=== PATIENT | female | born 1935 | race Caucasian/White ===

== ENCOUNTER 2018-01-04 16:34 | Inpatient (IN) | payer OTHER, MEDICARE ==
[~2018-01-04] VITALS: Ht 160 cm; Wt 119.7 kg
--- NOTE | 2018-01-04 17:05 | ED UPPER/LOWER EXTREMITY COMPL ---
History of Present Illness General Chief Complaint: Lower Extremity Problems Stated Complaint: BIBA FOR LE PROBLEMS Vital Signs & Intake/Output Vital Signs & Intake/Output Vital Signs Date Time Temp Pulse Resp B/P B/P Pulse O2 O2 Flow FiO2 Mean Ox Delivery Rate 01/04 1642 98.9 01/04 1639 141 19 129/56 98 Room Air Allergies Coded Allergies: No Known Allergies (01/04/18) Triage Note: TO ED FROM HOME BY AMBULANCE WITH C/O SWELLING, REDNESS, EDEMA TO BLE. BLE NOTED NECROTIC. PTS BROTHER IN LAW CALLED 911. PT COMPLAINT FREE. 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
--- NOTE | 2018-01-04 17:06 | ED GENERAL ADULT ---
History of Present Illness General Chief Complaint: Lower Extremity Problems Stated Complaint: BIBA FOR LE PROBLEMS Source: patient, family, EMS Exam Limitations: no limitations Vital Signs & Intake/Output Vital Signs & Intake/Output Vital Signs Date Time Temp Pulse Resp B/P B/P Pulse O2 O2 Flow FiO2 Mean Ox Delivery Rate 01/045 121 120/64 01/04 2136 121 17 120/64 01/04 1914 97.0 129 20 129/77 99 Room Air 01/04 1801 118 01/04 1642 98.9 01/04 1639 141 19 129/56 98 Room Air Allergies Coded Allergies: No Known Allergies (01/04/18) Triage Note: TO ED FROM HOME BY AMBULANCE WITH C/O SWELLING, REDNESS, EDEMA TO BLE. BLE NOTED NECROTIC. PTS BROTHER IN LAW CALLED 911. PT COMPLAINT FREE. NOTED TACHYCARDIC TO 150S DURING TRIAGE Triage Nurses Notes Reviewed? yes Onset: Gradual Duration: getting worse Timing: recent history Severity: severe Severity Numbers: 10 HPI: Patient is a 82-year-old female with a past medical history of atrial fibrillation currently on ELIQUIS AND hypertension who presents emergency room brought in by ambulance for concerns of family members communicating with patient in person in over the phone and noted concern of intermittent confusion in the past 3 days. EMS arrived on scene to patient's residency and OBSERVED patient's residency TO BE SIGNIFICANLTY POORLY KEPT AND HER LOWER LEGS WERE malodorous AND PURULENT Patient per EMS was alert and oriented and afebrile and offered no complaints Family was present state that they denied any slurred speech or extremity unilateral weakness Patient denies any fever chills shortness of breath cough back pain abdominal pain nausea vomiting or leg pain or leg paresthesia or weakness. When discussing with patient she states that she has not taken off her lower leg stockings since early November patient had been able to ambulate to use the restroom in which she denies any constipation melena or bright red blood or change in frequency of urination patient denies any headache blurred vision facial droop and slurred speech or difficulty finding words Patient does admit that she is supposed to the applying topical cream to her legs however she has not done this in some time patient also admits to not taking her medications for the past 2-3 days Patient can tolerate by mouth (Mitch COREAS,Nacho) Past History Travel History Traveled to [place] past 21 day No Medical History Any Pertinent Medical History? 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 No (Nacho Johnson) Review of Systems Review of Systems Constitutional: Reports: no symptoms. EENTM: Reports: no symptoms. Respiratory: Reports: no symptoms. Cardiovascular: Reports: no symptoms. GI: Reports: no symptoms. Genitourinary: Reports: no symptoms. Musculoskeletal: Reports: no symptoms. Skin: Reports: see HPI. Neurological/Psychological: Reports: see HPI. Hematologic/Endocrine: Reports: see HPI. Immunologic/Allergic: Reports: no symptoms. All Other Systems: Reviewed and Negative (Nacho Johnson) Physical Exam Physical Exam General Appearance: alert, awake, obese Head: atraumatic Eyes: Bilateral: normal appearance. Ears, Nose, Throat: normal pharynx, hearing grossly normal Neck: normal inspection Respiratory: normal breath sounds, chest non-tender, no respiratory distress Cardiovascular: tachycardia, irregularly irregular Peripheral Pulses: 2+ dorsalis pedis (R), 2+ dorsalis pedis (L) Gastrointestinal: normal bowel sounds, soft, non-tender Comments: Patient's bilateral lower extremities below the knee noted significant purulent malodorous discharge and erythema dermatomes intact capillary refill less than 2 seconds full active range of motion and ankle Core Measures ACS in differential dx? No CVA/TIA Diagnosis: No Sepsis Present: No Sepsis Focused Exam Completed? No (Nacho Johnson) Progress Differential Diagnoses I considered the following diagnoses in my evaluation of the patient: [Sepsis, osteomyelitis, cellulitis, atrial fibrillation] Plan of Care: Orders Procedure Date/time Status Heart Healthy Diet 01/05 B Active Patient Data 01/04 2204 Active BASIC METABOLIC PANEL 01/04 2125 Complete ED Holding Orders 01/04 2115 Active Admit to inpatient 01/04 2115 Active Vital Signs 01/04 2115 Active Code Status 01/[address] LOWER EXT WO IV CONTRAST 01/04 2114 Active LACTIC ACID 01/04 2017 Complete Add-on Test (ER Only) 01/04 1958 Active [place], Insertion/Removal/Asses 01/04 1938 Active B-TYPE NATRIURETIC PEP (BNP) 01/04 172 Complete Telemetry/Rail Car Painter/Sandblaster 01/04 1717 Active CULTURE,URINE 01/04 1717 Active BLOOD CULTURE 01/04 1717 Active URINALYSIS 01/04 1717 Complete TROPONIN LEVEL 01/04 1717 Complete PARTIAL THROMBOPLASTIN TIME 01/04 1717 Complete PROTHROMBIN TIME 01/04 1717 Complete LACTIC ACID 01/04 1717 Complete WESTERGREN SED RATE 01/04 1717 Complete C-REACTIVE PROTEIN 01/04 1717 Complete COMPREHENSIVE METABOLIC PANEL 01/04 1717 Complete CBC WITHOUT DIFFERENTIAL 01/04 1717 Complete TYPE & SCREEN (NOT X-MATCH) 01/04 1717 Complete Intake & Output 01/04 165 Active EKG 01/04 1641 Active Laboratory Tests 01/04/182126: Lactic Acid 1.1 01/04/182126: Anion Gap 10, Estimated GFR 25 L, BUN/Creatinine Ratio 41.6 H, Glucose 151 H, Calcium 8.8 01/04/18 1950: Urine Color YEL, Urine Clarity CLEAR, Urine pH 6.0, Ur Specific [place] 1.020, Urine Protein TRACE H, Urine Ketones TRACE H, Urine Nitrite NEG, Urine Bilirubin NEG, Urine Urobilinogen 0.2, Ur Leukocyte Esterase MOD H, Ur Microscopic SEDIMENT EXAMINED, Urine RBC RARE, Urine WBC 25-50 H, Ur Epithelial Cells OCCAS, Urine Bacteria FEW H, Hyaline Casts FEW H, Urine Hemoglobin NEG, Urine Glucose NEG 01/04/181727: Anion Gap 16, Estimated GFR 21 L, BUN/Creatinine Ratio 41.4 H, Glucose 130 H, Lactic Acid 1.6, Calcium 9.9, Total Bilirubin 1.1, AST 19, ALT 31, Alkaline Phosphatase 122, Troponin I 0.01, C-Reactive Prot, Quant 4.2 H, Pro-B- Natriuretic Pept 6010 H, Total Protein 7.2, Albumin 3.9, Globulin 3.3, Albumin/ Globulin Ratio 1.2, PT 16.0 H, INR 1.53 H, APTT 48 H, CBC w Diff NO MAN DIFF REQ, RBC 4.18 L, MCV 86.5, MCH 28.9, MCHC 33.4, RDW 13.1, MPV 8.5, Gran % 81.2 H, Lymphocytes % 11.2 L, Monocytes % 7.4, Eosinophils % 0.2, Basophils % 0, Absolute Granulocytes 8.3 H, Absolute Lymphocytes 1.1 L, Absolute Monocytes 0.7 H, Absolute Eosinophils 0, Absolute Basophils 0, ESR [place] 108 H Microbiology 01/04 1952 URINE ROUT: Urine Culture - RECD 01/04 1738 BLOOD: Blood Culture - RECD 01/04 1728 BLOOD: Blood Culture - RECD Family member does note that patient was on a diuretic in the past and noted suspicion of acute kidney injury in which now patient LISINOPRIL-HCTZ however it is unknown last creatinine function On examination and history patient denies any shortness of breath symptoms or chest pain or lower extremity pain no concerns of pulmonary embolism Upon admission patient does have clinical signs and chest x-ray signs of CHF IV Lasix was administered IV fluids was initially administered due to concerns of tachycardia, and sepsis WITH A 2.2 creatinine however Lasix will be ordered NOW FOR CHF Diagnostic Imaging: Viewed by Me: Radiology Read, CT Scan. Radiology Impression: SEE COMMENTS Initial ED EKG: AFIB (141 BPM) Comments: PATIENT: LISA NEIL PRESENT AGE: 82 PATIENT ACCOUNT NO: [id number] : 37 LOCATION: [facility] ORDERING PHYSICIAN: Nacho COREAS SERVICE DATE: 01/04/18 EXAM TYPE: RAD - XRY-FOOT COMPLETE, R; XRY-KNEES BILAT; [id number], LEFT EXAMINATION: XR FOOT, BILATERAL XR KNEE, BILATERAL XR TIBIA/FIBULA, BILATERAL CLINICAL INFORMATION: Severe bilateral leg purulent cellulitis. COMPARISON: None TECHNIQUE: Limited study with AP views of both knees, both lower legs, and both feet. 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 No obvious cortical erosion or destruction. No obvious cortical erosion or destruction of the feet. Diffuse soft tissue edema of both lower extremities. IMPRESSION: Very limited study with no obvious evidence of osteomyelitis of the lower legs. If clinical concern of osteomyelitis persists, a bone scan can be recommended to further evaluate. DICTATED BY: Rajeev Fuller MD DATE/TIME DICTATED:01/04/181954 ELECTRICAL AND INSTRUMENT TECHNICIAN:CALLUM PATIENT: LISA NEIL PRESENT AGE: 82 PATIENT ACCOUNT NO: [id number] : 37 LOCATION: [facility] ORDERING PHYSICIAN: Nacho COREAS SERVICE DATE: 01/04/18 EXAM TYPE: RAD - XRY-CHEST XRAY, SINGLE VIEW EXAMINATION: PORTABLE CHEST 1 VIEW CLINICAL INFORMATION: BILATERAL LEG SEVERE PURULENT CELLULITIS EVAL OSTEO, CONFUSION COMPARISON: No recent pertinent prior studies are available for comparison. TECHNIQUE: Portable frontal view of the chest was obtained. FINDINGS: Lungs are well expanded with chronic appearing coarsened reticular and interstitial markings bilaterally. There is central vascular prominence. Without prior plain films to compare to its difficult to exclude a component of mild interstitial edema with this appearance. No significant effusion or pneumothorax. Cardiac silhouette is prominent. Vascular calcification seen in aorta. IMPRESSION: Coarsened reticular and interstitial markings with central vascular prominence and enlarged cardiac silhouette. In the acute setting without priors to compare it would be difficult to exclude a component of interstitial edema. DICTATED BY: Pepito Dill MD DATE/TIME DICTATED:01/04/181951 ELECTRICAL AND INSTRUMENT TECHNICIAN:CALLUM DATE/TIME TRANSCRIBED:01/04/181951 PATIENT: LISA NEIL PRESENT AGE: 82 PATIENT ACCOUNT NO: [id number] : 37 LOCATION: [facility] ORDERING PHYSICIAN: Nacho COREAS SERVICE DATE: 01/04/18 EXAM TYPE: CAT - CT HEAD WO IV CONTRAST EXAMINATION: CT HEAD WITHOUT CONTRAST CLINICAL INFORMATION: Confusion. COMPARISON: No relevant prior imaging. TECHNIQUE: Contiguous axial imaging was performed from the skull base to vertex without intravenous administration of contrast. DLP: 613.33 mGy-cm FINDINGS: There is no acute intracranial hemorrhage or abnormal extra-axial collection. No intracranial mass effect or midline shift. Lateral and third ventricles are proportionate to the subarachnoid spaces. No hydrocephalus. Scattered nonspecific foci of hypoattenuation are visualized within the periventricular white matter that most likely represent a chronic manifestation of small vessel ischemia. The calvarium and skull base are intact. Mastoid air cells and middle ear cavities are well-aerated. Visualized nasal sinuses are well-aerated. IMPRESSION: There are scattered chronic small vessel ischemic changes within the periventricular white matter. No evidence acute territorial infarct or hemorrhage. DICTATED BY: Franky Espinoza MD DATE/TIME DICTATED:01/04/181912 ELECTRICAL AND INSTRUMENT TECHNICIAN:CALLUM DATE/TIME TRANSCRIBED:01/04/181912 (Nacho Johnson) Departure Departure Disposition: STILL A PATIENT Condition: Stable Clinical Impression Primary Impression: Cellulitis of leg Secondary Impressions: Atrial fibrillation, CHF (congestive heart failure), Elevated creatine kinase Referrals: Bryan Leonardo MD (PCP/Family) Departure Forms: Customer Survey General Discharge Information Admission Note Spoke With: Jolynn Alex MD Documentation of Exam: Documentation of any treatments & extenuating circumstances including Concerns Regarding Discharge (functional status, medication knowledge or non-compliance, living conditions, etc.) that warrant an admission rather than observation: [ Patient requires repeat labs wound care ID CONSULT, patient IV antibiotics case management consultation IV Lasix CARDIOLOGY consultation (Nacho Johnson) PA/INSTRUCTIONAL SPECIALIST Co-Sign Statement Statement: ED Attending supervision documentation- [X] I saw and evaluated the patient. I have also reviewed all the pertinent lab results and diagnostic results. I agree with the findings and the plan of care as documented in the PA's/INSTRUCTIONAL SPECIALIST's documentation. [X] I have reviewed the ED Record and agree with the PA's/INSTRUCTIONAL SPECIALIST's documentation. [] Additions or exceptions (if any) to the PAs/INSTRUCTIONAL SPECIALIST's note and plan are summarized below: [BOTH LOWER EXTREMITIES VERY EDEMATOUS AND MASSERATED, FOUL ODOR, ERYTHMEA, ? DRY GANGREEN TO TOES. IV ABX, IV DIURESIS, VASCULAR CONSULT AN INPATIENT, WOUND CONSULT] (Deana CANO,Keith Jauregui) Critical Care Note Critical Care Note Critical Care Time: 30-74 min (Nacho Johnson)
[2018-01-04 18:01] LABS: ABSOLUTE BASOPHIL COUNT 0 /CUMM (0.0-0.2); ABSOLUTE EOSINOPHIL COUNT 0 /CUMM (0.0-0.7); ABSOLUTE GRANULOCYTE CT 8.3 /CUMM (1.4-6.5); ABSOLUTE LYMPH COUNT 1.1 /CUMM (1.2-3.4); ABSOLUTE MONOCYTE COUNT 0.7 /CUMM (0.10-0.60); BASOPHIL % 0 % (0.0-2.0); EOSINOPHIL % 0.2 % (0-5); GRANULOCYTE % 81.2 % (42.2-75.2); HEMATOCRIT 36.2 % (37-47); MEAN CORPUSCULAR HGB 28.9 PG (27.0-31.0); MEAN CORPUSCULAR HGB CONC 33.4 G/DL (33.0-37.0); MEAN CORPUSCULAR VOLUME 86.5 FL (81.0-99.0); MEAN PLATELET VOLUME 8.5 FL (7.4-10.4); PLATELET COUNT 352 /CUMM (130-400); RBC DISTRIBUTION WIDTH 13.1 % (11.5-14.5); RED BLOOD CELL CT 4.18 /CUMM (4.20-5.40); WHITE BLOOD CELL COUNT 10.2 /CUMM (4.8-10.8)
[2018-01-04 18:04] LABS: PTT 48 SEC (25-37)
--- NOTE | 2018-01-04 19:20 | CT SCAN REPORT ---
EXAMINATION: CT HEAD WITHOUT CONTRAST CLINICAL INFORMATION: Confusion. COMPARISON: No relevant prior imaging. TECHNIQUE: Contiguous axial imaging was performed from the skull base to vertex without intravenous administration of contrast. DLP: 613.33 mGy-cm FINDINGS: There is no acute intracranial hemorrhage or abnormal extra-axial collection. No intracranial mass effect or midline shift. Lateral and third ventricles are proportionate to the subarachnoid spaces. No hydrocephalus. Scattered nonspecific foci of hypoattenuation are visualized within the periventricular white matter that most likely represent a chronic manifestation of small vessel ischemia. The calvarium and skull base are intact. Mastoid air cells and middle ear cavities are well-aerated. Visualized nasal sinuses are well-aerated. IMPRESSION: There are scattered chronic small vessel ischemic changes within the periventricular white matter. No evidence acute territorial infarct or hemorrhage.
--- NOTE | 2018-01-04 19:56 | RADIOLOGY REPORT ---
EXAMINATION: PORTABLE CHEST 1 VIEW CLINICAL INFORMATION: BILATERAL LEG SEVERE PURULENT CELLULITIS EVAL OSTEO, CONFUSION COMPARISON: No recent pertinent prior studies are available for comparison. TECHNIQUE: Portable frontal view of the chest was obtained. FINDINGS: Lungs are well expanded with chronic appearing coarsened reticular and interstitial markings bilaterally. There is central vascular prominence. Without prior plain films to compare to its difficult to exclude a component of mild interstitial edema with this appearance. No significant effusion or pneumothorax. Cardiac silhouette is prominent. Vascular calcification seen in aorta. IMPRESSION: Coarsened reticular and interstitial markings with central vascular prominence and enlarged cardiac silhouette. In the acute setting without priors to compare it would be difficult to exclude a component of interstitial edema.
--- NOTE | 2018-01-04 20:46 | RADIOLOGY REPORT ---
EXAMINATION: XR FOOT, BILATERAL XR KNEE, BILATERAL XR TIBIA/FIBULA, BILATERAL CLINICAL INFORMATION: Severe bilateral leg purulent cellulitis. COMPARISON: None TECHNIQUE: Limited study with AP views of both knees, both lower legs, and both feet. 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 No obvious cortical erosion or destruction. No obvious cortical erosion or destruction of the feet. Diffuse soft tissue edema of both lower extremities. IMPRESSION: Very limited study with no obvious evidence of osteomyelitis of the lower legs. If clinical concern of osteomyelitis persists, a bone scan can be recommended to further evaluate.
[2018-01-04] MEDS ORDERED: ELIQUIS5 M1 PO (22:38)
[2018-01-04] MEDS ORDERED: TOPROL XL50 M1 PO (22:38)
[2018-01-04] MEDS ORDERED: ZESTORETIC 20-1 EAC1 PO (22:39)
[2018-01-04] MEDS ORDERED: VITAMIN D1000 UNIT PO (22:40)
--- NOTE | 2018-01-04 23:17 | CT SCAN REPORT ---
EXAMINATION: CT LOWER EXTREMITY WITHOUT CONTRAST, BILATERAL CLINICAL INFORMATION: Infected purulent legs. COMPARISON: Same day radiographs. TECHNIQUE: CT without contrast is performed on the right and left lower legs. DLP: 936 mGy-cm FINDINGS: Diffuse skin thickening and subcutaneous edema/reticulation compatible with cellulitis as per clinical history. No focal fluid collection to indicate an abscess. No cortical erosions or periosteal reaction to suggest osteomyelitis are demonstrated. IMPRESSION: Evidence of cellulitis with no discrete abscess. No acute osseous abnormalities. No evidence of osteomyelitis.
--- NOTE | 2018-01-04 23:27 | History & Physical ---
Paola Sandoval MD 01/04/18 5717: General Information and HPI MD Statement: I have seen and personally examined LISA NEIL and documented this H&P. The patient is a 82 year old F who presented with a patient stated chief complaint of [lower limb cellulitis]. Source of Information: patient, family Exam Limitations: no limitations History of Present Illness: 82 years old female with past medical history of hypertension and A. fib on Eliquis, borderline diabetes presents to the ED BIBA for family concerns about the patient being confused. The patient was talking to her sister over the phone and she was found to be talking slower than usual and confused about time and place. The patient's lqsyaci-vy-foq went to check on her and called 911, when the EMT reaches the place it was found poorly kept with lower extremity lesions discharging foul-smelling purulent discharge. The patient reports that for many months her leg and feet skin was"bubbly" and was advised to moisturize her legs and apply hot compresses however she was not compliant. Her last November the patient noticed that her legs are oozing purulent (Clear-yellowish) discharge and she was trying to wear stocking to stop the oozing. She reports that she was wearing the stocking since the beginning of November and was not able to take a shower or change it. She did not see any doctors for her legs in the past ROS:Patient reports a burning sensation in her lower extremity, discomfort and difficulty walking. In addition she endorses mild exertional shortness of breath and poor oral intake. She denies any fever, chills, nausea, vomiting, diarrhea or constipation, dysurea or frequency. She also denies any chest pain, orthopnea or paroxysmal nocturnal dyspnea, focal weakness or facial droop Patient reports that she was not taking her home meds for the past few days however she think the last time she took her Eliquis was 2 days ago Patient lives home alone Patient's handle and vent machine operator is Dr. Muñoz. Note the patient the patient was started on Lasix a few years ago by her PCP and only used it for 3 months after which it was discontinued due to COCO ED course: Vital signs: Blood pressure 129/56, pulse 141, temperature 98.9, pulse ox 98 on room air Labs: CBCs shows WBC 10.2 with left shift, hemoglobin 12.1, platelets 352, PT 16 INR 1.53, PTT 48, sodium 140, potassium 5.9, and BUN 91, creatinine 2.2, glucose 130 , lactic acid 1.6, AST 19, AST 31, CRP 4.2, proBNP 6010, TSH is 3.7, free T4 0.93, urine analysis showed WBC 25-50 X-ray of tibia, fibula, feet did not show obvious evidence of osteomyelitis but recommended if concerns for osteomyelitis persistent to get bone scan Allergies/Medications Allergies: Coded Allergies: No Known Allergies (01/04/18) Home Med list Apixaban (Eliquis) 5 MG TABLET 5 MG PO BID afib (Reported) Cholecalciferol (Vitamin D3) (Vitamin D) 1,000 UNIT TABLET 1,000 UNIT PO DAILY D DEFIFICIENCY (Reported) Lisinopril/Hydrochlorothiazide (Zestoretic 20-25 MG Tablet) 20 MG-25 MG TABLET 20-25 MG PO DAILY HTN (Reported) Metoprolol Succ XL (Toprol Xl) 50 MG TAB 50 MG PO BID HTN (Reported) Past History Travel History Traveled to [place] past 21 day No Medical History Neurological: NONE EENT: NONE Cardiovascular: AFIB, hypertension Respiratory: NONE Gastrointestinal: NONE Hepatic: NONE Renal: NONE Musculoskeletal: NONE Psychiatric: NONE Endocrine: NONE Blood Disorders: NONE Cancer(s): NONE ONLINE MERCHANDISING SPECIALIST/Reproductive: NONE Surgical History Surgical History: non-contributory Past Family/Social History Family History Relations & Conditions if any Relation not specified for: *No pertinent family history Psychosocial History ETOH Use: denies use Illicit Drug Use: denies illicit drug use Review of Systems Review of Systems Constitutional: Denies: chills, diaphoresis, fever, malaise, weakness. Cardiovascular: Reports: edema. Denies: chest pain, orthopena, palpitations, peripheral edema. Respiratory: Reports: short of breath. Denies: cough, hemoptysis, orthopnea, sputum production, stridor, wheezing. GI: Denies: abdominal pain, diarrhea, nausea, changes in stool, vomiting. Genitourinary: Denies: dysuria, frequency, hematuria, hesitation, nocturia. Musculoskeletal: Denies: no symptoms. Skin: Reports: see HPI, lesions. Neurological/Psychological: Denies: no symptoms. Hematologic/Endocrine: Denies: no symptoms. Immunologic/Allergic: Denies: no symptoms. Exam & Diagnostic Data Last 24 Hrs of Vital Signs/I&O Vital Signs Date Time Temp Pulse Resp B/P B/P Pulse O2 O2 Flow FiO2 Mean Ox Delivery Rate 01/05 0105 97.5 126 22 102/76 94 Room Air 01/05 0019 Room Air 01/04 2320 97.3 103 20 109/73 98 Room Air 01/04 2233 109 01/04 2145 121 120/64 01/04 2136 121 17 120/64 01/04 1914 97.0 129 20 129/77 99 Room Air 01/04 1801 118 01/04 1642 98.9 01/04 1639 141 19 129/56 98 Room Air Intake & Output 01/05 0800 01/05 0000 01/04 1600 Intake Total Output Total 1000 Balance -1000 Output, Urine 1000 Patient 264 lb 264 lb Weight Weight Reported by Patient Measurement Method Body Front and Back (Adult) 1) 2) 3) 4) 5) 6) Last 24 Hrs of Labs/Landon: Laboratory Tests 01/04/182126: Lactic Acid 1.1 01/04/182126: Anion Gap 10, Estimated GFR 25 L, BUN/Creatinine Ratio 41.6 H, Glucose 151 H, Calcium 8.8, Phosphorus 3.9, Magnesium 2.3, Troponin I 0.01, TSH 3.740, Free T4 0.93 01/04/18 1950: Urine Color YEL, Urine Clarity CLEAR, Urine pH 6.0, Ur Specific [place] 1.020, Urine Protein TRACE H, Urine Ketones TRACE H, Urine Nitrite NEG, Urine Bilirubin NEG, Urine Urobilinogen 0.2, Ur Leukocyte Esterase MOD H, Ur Microscopic SEDIMENT EXAMINED, Urine RBC RARE, Urine WBC 25-50 H, Ur Epithelial Cells OCCAS, Urine Bacteria FEW H, Hyaline Casts FEW H, Urine Hemoglobin NEG, Urine Glucose NEG 01/04/18 172: Anion Gap 16, Estimated GFR 21 L, BUN/Creatinine Ratio 41.4 H, Glucose 130 H, Lactic Acid 1.6, Calcium 9.9, Total Bilirubin 1.1, AST 19, ALT 31, Alkaline Phosphatase 122, Troponin I 0.01, C-Reactive Prot, Quant 4.2 H, Pro-B- Natriuretic Pept 6010 H, Total Protein 7.2, Albumin 3.9, Globulin 3.3, Albumin/ Globulin Ratio 1.2, PT 16.0 H, INR 1.53 H, APTT 48 H, CBC w Diff NO MAN DIFF REQ, RBC 4.18 L, MCV 86.5, MCH 28.9, MCHC 33.4, RDW 13.1, MPV 8.5, Gran % 81.2 H, Lymphocytes % 11.2 L, Monocytes % 7.4, Eosinophils % 0.2, Basophils % 0, Absolute Granulocytes 8.3 H, Absolute Lymphocytes 1.1 L, Absolute Monocytes 0.7 H, Absolute Eosinophils 0, Absolute Basophils 0, ESR Westergren 108 H Microbiology 01/04 1952 URINE ROUT: Urine Culture - RECD 01/04 173 BLOOD: Blood Culture - RECD 01/04 172 BLOOD: Blood Culture - RECD Diagnostic Data EKG Results Afib , heart rate 128, QTC 432, no ST-T wave changes CXR Results Coarsened reticular and interstitial markings with central vascular prominence and enlarged cardiac silhouette. In the acute setting without priors to compare it would be difficult to exclude a component of interstitial edema. Other Results foot X Ray:Very limited study with no obvious evidence of osteomyelitis of the lower legs. If clinical concern of osteomyelitis persists, a bone scan can be recommended to further evaluate. Head CT: There are scattered chronic small vessel ischemic changes within the periventricular white matter. No evidence acute territorial infarct or hemorrhage. LE CT:Evidence of cellulitis with no discrete abscess. No acute osseous abnormalities. No evidence of osteomyelitis. Assessment/Plan Assessment: 82 years old female with past medical history of hypertension and A. fib on Eliquis, borderline diabetes presents to the ED BIBA for family concerns about the patient being confused. The patient was talking to her sister over the phone and she was found to be talking slower than usual and confused about time and place. The patient's twpatik-hs-mic went to check on her and called 911, when the EMT reaches the place it was found poorly kept with lower extremity lesions discharging foul-smelling purulent discharge Vital signs: Blood pressure 129/56, pulse 141, temperature 98.9, pulse ox 98 on room air Labs: CBCs shows WBC 10.2 with left shift, hemoglobin 12.1, platelets 352, PT 16 INR 1.53, PTT 48, sodium 140, potassium 5.9, and BUN 91, creatinine 2.2, glucose 130 , lactic acid 1.6, AST 19, AST 31, CRP 4.2, proBNP 6010, TSH is 3.7, free T4 0.93, urine analysis showed WBC 25-50 X-ray of tibia, fibula, feet did not show obvious evidence of osteomyelitis but recommended if concerns for osteomyelitis persistent to get bone scan Lower extremity imaging including CT was negative for features of osteomyelitis and only showed extensive soft tissue swelling #CHF Patient has history of hypertension and A. fib and was found to have elevated pro PNP, chest x-ray showed coarse reticular interstitial marking suggestive of interstitial edema Admit to telemetry floor Vitals every shift Patient was given 1 dose of Lasix 40 mg in the EDPatient has COCO would hold off Lasix for now till improvement of his kidney function Echocardiography serial EKG and Trops to R/O ACS Strict I's and O's Check hemoglobin A1c and lipid panel Cardiology consult appreciated #A. fib. Should received 2.5 mg Eliquis in the ED because of impaired kidney function Continue home dose Eliquis 5 mg twice a day starting tomorrow Continue metoprolol 50 mg twice a day Confirmed home meds in the morning #Bilateral extensive purulent lower extremity cellulitis with open wounds Continue vancomycin/ceftaz Follow-up on blood culture ID consult appreciated Wound consult appreciated Vascular consult appreciated Venous Doppler U/S tp R/O DVT Arterial DUplex to R/O PVD #COCO and hyperkalemia Most likely due to dehydration and poor oral intake Patient received a 2 L of normal saline in the ED We'll hold off Lasix for now Close monitoring of kidney function Encourage by mouth intake #Bilateral groin rash (intertrigo) Nystatin powder Patient is full code. DVT prophylaxis was Eliquis Heart healthy diet As Ranked By This Provider Problem List: 1. CHF (congestive heart failure) 2. Atrial fibrillation 3. Cellulitis of leg Core Measures/Misc (07/26) Acute Coronary Syndrome ACS Diagnosis: No Congestive Heart Failure Congestive Heart Failure Diagnosis No Cerebrovascular Accident CVA/TIA Diagnosis: No VTE (View Protocol) VTE Risk Factors Age>40 No Mechanical VTE Prophylaxis d/t Medical Contraindication No VTE Pharm Prophylaxis d/t NA PharmProphylax ordered Sepsis (View protocol) Sepsis Present: No Isma Arias 01/05/18 0218: Resident Review Statement Resident Statement: examined this patient, discussed with senior internet sales consultant, agreed with senior internet sales consultant, discussed with family, reviewed EMR data (avail), discussed with nursing , discussed with case mgmt, reviewed images, amended to note Other Findings: Patient is a 82-year-old female with medical history of atrial fibrillation currently on ELIQUIS, hypertension, chronic lower extremity edema. Patient presented to the emergency department via EMS for concern by the family member regarding intermittent confusion. The family stated that for the past 3 days with a contact her over the phone patient sound to be confused and altered and because of that they contact the EMS to assist her at her home, according to the EMS the patient home was significantly poorly kept and they noticed that she had lower legs malodorous was a purulent discharge. According to EMS patient was alert and oriented at that time, afebrile and offered no complaint. One of the family member stated that when they contact the patient over phone she was responding slower than her usual but during history obtained patient states she is now at her mental status baseline. Patient stated that for the past 1-2 months she was wearing her lower leg stocking, she did not change it since then or even take it off also she report difficulty ambulation and at least for the past 2-3 days she cannot even get herself to the bathroom, also she reports for the past 2-3 days she did not take her home medication. Patient stated that she was hiding her lower extremity from family due to embarrassing and she reports that in the past she was placed on Lasix for her lower extremity edema for around 3 months that was discontinued due to worsening renal function. Currently she denies any chest pain, shortness of breath, wheezing, heart racing , abdominal pain, nausea, vomiting, diarrhea, headaches, orthopnea. Physical examination, lab and imaging as above. Problem list: -Newly congestive heart failure -Bilateral lower extremity purulent cellulitis. -Atrial fibrillation currently in RVR. -Acute kidney injury no baseline to compare with/hyperkalemia. -Bilateral groin rash -Generalized weakness Plan: -Admit patient to telemetry floor -Vitals every shift, high risk fall. Strict TAN's, Daily weight -Patient received 40 mg IV Lasix in ED we'll hold additional diuresis till tomorrow morning. -Obtain echocardiogram -Cardiology consultation in a.m. -Additional set troponin and EKG -Check TSH, free T4, Mag, hemoglobin A1c, lipid panel in a.m. -Continue IV Fortaz, IV vancomycin -Bilateral lower extremity venous and arterial Doppler -Follow blood and urine culture -Infectious disease consultation in a.m., vascular consultation in a.m. -Wound care consultation in a.m. -Patient received home dose of metoprolol, continue monitoring if needed will give the patient 5 mg of IV Cardizem. -We'll hold off any IV fluids for now, we'll assess renal function in a.m.. -Nystatin twice daily -Physical therapy consultation in a.m. -heart healthy diet -pain pathway -DVT ppt: eliquis -full code. Isai CANO, [facility] 01/05/18 0409: Attending MD Review Statement Attending Statement Attending MD Statement: examined this patient, discuss w/resident/PA/RECRUITER MANAGER, agreed w/resident/PA/RECRUITER MANAGER, discussed with family, reviewed images, amended to note Attending Assessment/Plan: 82 yo F with h/o Afib on eliquis, HTN, chronic lower extremity edema, is brought in for evaluation of confusion. Patient's brother in law provided us details. He notes that when he reached out over the phone, she appeared confused. When EMS arrived, they noted the house was poorly kept and patient's legs were malodorous , wherein she had not changed her stockings for over 2 months. Patient reports that her lower extremities were 'weeping' clear liquid and she found it difficult to manage so she just left her stockings on. She would hide her feet when family visited her as she did not want them to know. She reports poor appetite and difficult moving around. She had not changed her diaper for past few days as she found it difficult to walk to the bathroom. She has also not been taking her medications for the past 3 days. Vitals stable except for HR in 100-120's. Exam: AAO, MMM, JVD+, Chest bibasilar crepts+, Bilateral lower extremities below the knee with macerated skin, with purulent malodorous discharge, erythema++ extends upto the ankle joint. Bilateral 2+ edema and difficult to palpate peripheral pulses. Labs: ESR 108, INR 1.53, K 5.9, bicarb 15, BUN 91, creat 2.2 (baseline unknown), glucose 130, lactic acid 1.6, trop neg, CRP 4.2, proBNP 6010. UA mod LE, WBC 25-50. CXR: coarsened reticular and interstitial markings with central vascular prominence, enlarged cardiac silhouette. Cannot rule out interstitial edema. CT head: chronic small vessel ischemic changes. CT lower extremity: cellulitis with no discrete abscess, no osseous abnormalities, no osteomyelitis. EKG: Afib @ 128. Assessment and plan: 1. Afib with rapid ventricular response 2. Noncompliance with medications 3. New onset congestive heart failure 4. Bilateral purulent lower extremity cellulitis, rule out gangrene 5. COCO vs CKD with hyperkalemia - Admit to Telemetry - Monitor for arrhythmias - Serial EKG and troponin to rule out ACS - Resume metoprolol BID, HR now settled to 100-110's, holding off on cardizem drip. - Obtain Echo and Cardio consult (Dr. Muñoz) - Patient initially received IV fluids in ER for possible sepsis, later noted to be in CHF. - IV lasix 40 mg given in ER, watch I/O's - Hold further lasix, assess renal function in AM and need for further diuresis based on that - Hold lisinopril and HCTZ - Elevate LE - Panculture - IV ceftaz and vanco for now - LE doppler to rule out DVT - LE arterial doppler to assess for PVD - Vascular consult and Wound consult - ID consult in AM to help with antibiotics - Check TSH, free T4, A1c. - Nystatin for fungal groin rash - PT eval - Pain management DVT ppx Eliquis. Full code.
--- NOTE | 2018-01-05 | Admission Certification ---
Admission Certification Certification Statement - As attending physician, I certify that at the time of - admission, based on clinical presentation, severity of - symptoms, need for further diagnostic testing and - therapeutic interventions, and risk of adverse outcomes - without in-hospital treatment, in my clinical assessment, - this patient requires an acute hospital stay for a minimum - of two nights or longer. I have also considered psychsocial - factors such as support system, advanced age, financial - issues, cognitive issues, and failed out-patient treatments, - past re-admission history, safety of patient, and lack of - compliance as applicable. Specific rationale supporting this admission is: Bilateral lower extremity purulent cellulitis, congestive heart failure with Afib with RVR.
[2018-01-05 01:05] VITALS: BP 102/76
[2018-01-05 06:28] VITALS: BP 108/66
--- NOTE | 2018-01-05 07:32 | PN- Housestaff ---
See Addendum Subjective Follow-up For: BLE cellulitis Afib with RVR COCO Hyperkalemia Acute on CHF Tele-Events Since Last Visit: Afib HR 88-122 Subjective: No complaints or acute events overnight Review of Systems Constitutional: Reports: see HPI. Objective Last 24 Hrs of Vital Signs/I&O Vital Signs Date Time Temp Pulse Resp B/P B/P Pulse O2 O2 Flow FiO2 Mean Ox Delivery Rate 01/05 1736 62 100/62 01/05 1507 97.7 62 20 100/62 96 01/05 0918 100 108/66 01/05 0917 100 108/66 01/05 0628 99.0 100 20 108/66 95 Room Air 01/05 0105 97.5 126 22 102/76 94 Room Air 01/05 0019 Room Air 01/04 2320 97.3 103 20 109/73 98 Room Air 01/04 2233 109 01/04 2145 121 120/64 01/04 2136 121 17 120/64 01/04 1914 97.0 129 20 129/77 99 Room Air 01/04 1801 118 Intake & Output 01/05 1600 01/05 0800 01/05 0000 Intake Total 400 120 Output Total 600 1000 1000 Balance -200 -880 -1000 Intake, IV 10 Intake, Oral 390 120 Output, Urine 600 1000 1000 Patient 264 lb 264 lb Weight Weight Reported by Patient Measurement Method Physical Exam General Appearance: Alert, Oriented X3, Cooperative Cardiovascular: irregular rate, 1/6 systolic murmur Lungs: Clear to Auscultation, Normal Air Movement Abdomen: Normal Bowel Sounds, Soft, No Tenderness Extremities: BLE edema, skin discoloration, ulcerative foul-smelling wounds Current Medications: Current Medications Sig/Jessica Start time Last Medication Dose Route Stop Time Status Admin Acetaminophen 650 MG Q6P PRN 01/04 2230 AC 01/05 PO 0125 Apixaban 2.5 MG BID 01/05 1000 AC PO Apixaban 2.5 MG ONCE ONE 01/04 2245 DC 01/05 PO 01/04 2246 0111 Ceftazidime 1,000 MG Q24H 01/05 1800 AC IV Ceftazidime 0 .STK-MED ONE 01/04 1817 DC .ROUTE Ceftazidime 1,000 MG ONCE ONE 01/04 1715 DC 01/04 IV 01/04 1716 1819 Cholecalciferol 1,000 IU DAILY 01/05 1000 AC PO Furosemide 0 .STK-MED ONE 01/04 2140 DC IV Furosemide 40 MG ONCE ONE 01/04 2115 DC 01/04 IV 01/04 211 214 Hydrocodone Bitart/ 1 TAB Q8P PRN 01/04 2230 AC Acetaminophen PO Lisinopril 20 MG DAILY 01/05 1000 AC PO Metoprolol Succinate 50 MG BID 01/05 1000 AC PO Metoprolol Tartrate 0 .STK-MED ONE 01/04 2140 DC PO Metoprolol Tartrate 50 MG ONCE ONE 01/04 2100 DC 01/04 PO 01/04 2101 2145 Nystatin 1 TACOS BID 01/05 0100 AC 01/05 TOP 0424 Oxycodone/ 1 TAB Q8P PRN 01/04 2230 AC Acetaminophen PO Sodium Chloride 1,000 ML BOLUS ONE 01/04 1815 DC 01/04 IV 01/04 1914 1820 Sodium Chloride 1,000 ML BOLUS ONE 01/04 1715 DC 01/04 IV 01/04 181 1727 Tramadol HCl 50 MG Q6 PRN 01/05 0015 CAN PO Vancomycin HCl 1,000 MG DAILY 01/05 1000 CAN Dextrose/Water 250 ML IV Vancomycin HCl 1,000 MG ONCE ONE 01/04 1715 DC 01/04 Dextrose/Water 250 ML IV 01/04 1814 1836 Last 24 Hrs of Lab/Landon Results Last 24 Hrs of Labs/Mics: Laboratory Tests 01/05/18 0635: Anion Gap 11, Estimated GFR 27 L, BUN/Creatinine Ratio 40.0 H, Triglycerides 43, Cholesterol 110, LDL Cholesterol, Calc 56 L, HDL Cholesterol 46, Cholesterol/HDL Ratio 2, CBC w Diff Pending, WBC Pending, RBC Pending, Hgb Pending, Hct Pending, MCV Pending, MCH Pending, MCHC Pending, RDW Pending, Plt Count Pending, MPV Pending 01/04/182126: Lactic Acid 1.1 01/04/182126: Anion Gap 10, Estimated GFR 25 L, BUN/Creatinine Ratio 41.6 H, Glucose 151 H, Calcium 8.8, Phosphorus 3.9, Magnesium 2.3, Troponin I 0.01, TSH 3.740, Free T4 0.93 01/04/18 1950: Urine Color YEL, Urine Clarity CLEAR, Urine pH 6.0, Ur Specific [place] 1.020, Urine Protein TRACE H, Urine Ketones TRACE H, Urine Nitrite NEG, Urine Bilirubin NEG, Urine Urobilinogen 0.2, Ur Leukocyte Esterase MOD H, Ur Microscopic SEDIMENT EXAMINED, Urine RBC RARE, Urine WBC 25-50 H, Ur Epithelial Cells OCCAS, Urine Bacteria FEW H, Hyaline Casts FEW H, Urine Hemoglobin NEG, Urine Glucose NEG 01/04/18 1728: Anion Gap 16, Estimated GFR 21 L, BUN/Creatinine Ratio 41.4 H, Glucose 130 H, Hemoglobin A1c Pending, Lactic Acid 1.6, Calcium 9.9, Total Bilirubin 1.1, AST 19, ALT 31, Alkaline Phosphatase 122, Troponin I 0.01, C-Reactive Prot, Quant 4.2 H, [id number] Pept 6010 H, Total Protein 7.2, Albumin 3.9, Globulin 3.3, Albumin/Globulin Ratio 1.2, PT 16.0 H, INR 1.53 H, APTT 48 H, CBC w Diff NO MAN DIFF REQ, RBC 4.18 L, MCV 86.5, MCH 28.9, MCHC 33.4, RDW 13.1, MPV 8.5, Gran % 81.2 H, Lymphocytes % 11.2 L, Monocytes % 7.4, Eosinophils % 0.2, Basophils % 0, Absolute Granulocytes 8.3 H, Absolute Lymphocytes 1.1 L, Absolute Monocytes 0.7 H, Absolute Eosinophils 0, Absolute Basophils 0, ESR Westergren 108 H Microbiology 01/04 1952 URINE ROUT: Urine Culture - RECD 01/04 1738 BLOOD: Blood Culture - RECD 01/04 1728 BLOOD: Blood Culture - RECD Orders Miscellaneous Findings: US-EXT BILAT VENOUS DOPPLER IMPRESSION: Normal triplex scan without evidence of deep venous thrombosis involving the bilateral lower extremities. US-BILAT LOW EXTR ARTERIAL DOP IMPRESSION: Limited evaluation, with nonvisualization of the left popliteal artery and bilateral anterior tibial and peroneal arteries. There are abnormal, monophasic waveforms seen of the bilateral femoral, profunda femoral and popliteal arteries. No significant peak systolic velocity reduction is seen in visualized segments. Recommend further evaluation with CTA or MRA. Assessment/Plan Assessment: Ms. Head is a 82 yo female with past medical history of hypertension and Afib on Eliquis, borderline diabetes presents to the ED BIBA for family concerns for AMS Problem list: BLE cellulitis Afib with RVR COCO Hyperkalemia Acute on CHF Plan: * US arterial Doppler equivocal * US venous Doppler negative * Monitor potassium and renal function * Continue hydrocodone, Apixaban * Change metoprolol 50 BID succinate to [address] Alicia ( cardio) * Cardiology recommendations appreciated * ID recommendations appreciated * Wound care recommendations appreciated * Vascular recommendations appreciated Problem List: 1. Cellulitis of leg Pain Ratin Pain Location: BLE Pain Goal: Remain pain free Pain Plan: Hydrocodone, Percocet Tomorrow's Labs & Rationales: BEP for renal function
[2018-01-05 08:27] LABS: ABSOLUTE BASOPHIL COUNT 0 /CUMM (0.0-0.2); MEAN PLATELET VOLUME 8.1 FL (7.4-10.4)
--- NOTE | 2018-01-05 08:43 | Cons- Vascular Surgery ---
General Information and HPI Consulting Request Date of Consult: 01/05/18 Requested By: Isai CANO,Jolynn Reason for Consult: venous stasis ulcers with cellulitis Source of Information: patient Exam Limitations: confusion History of Present Illness: 82 y/o f w/ morbid obesity, chf, afib on eliquis, dm who presents with ams and bilatearl lower extremity venous stasis ulcers and cellulitis. Pt seen and examined. not a good historian because of confusion. denies smoking. reports having the swelling for many months. labs and imaging reviewed. Allergies/Medications Allergies: Coded Allergies: No Known Allergies (01/04/18) Home Med List: Apixaban (Eliquis) 5 MG TABLET 5 MG PO BID afib (Reported) Cholecalciferol (Vitamin D3) (Vitamin D) 1,000 UNIT TABLET 1,000 UNIT PO DAILY D DEFIFICIENCY (Reported) Lisinopril/Hydrochlorothiazide (Zestoretic 20-25 MG Tablet) 20 MG-25 MG TABLET 20-25 MG PO DAILY HTN (Reported) Metoprolol Succ XL (Toprol Xl) 50 MG TAB 50 MG PO BID HTN (Reported) Past History Medical History Neurological: NONE EENT: NONE Cardiovascular: AFIB, hypertension Respiratory: NONE Gastrointestinal: NONE Hepatic: NONE Renal: NONE Musculoskeletal: NONE Psychiatric: NONE Endocrine: NONE Blood Disorders: NONE Cancer(s): NONE 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: 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 Surgical History Pertinent Surgical History: non-contributory Family History Relations & Conditions If Any: Relation not specified for: *No pertinent family history Psychosocial History Smoking Status: Never Smoked ETOH Use: denies use Illicit Drug Use: denies illicit drug use Review of Systems Review of Systems: 12 point review of symptoms peformed posative for lower extremity edemaa Exam & Diagnostic Data Vital Signs and I&O Vital Signs Date Time Temp Pulse Resp B/P B/P Pulse O2 O2 Flow FiO2 Mean Ox Delivery Rate 01/05 0628 99.0 100 20 108/66 95 Room Air 01/05 0105 97.5 126 22 102/76 94 Room Air 01/05 0019 Room Air 01/04 2320 97.3 103 20 109/73 98 Room Air 01/04 2233 109 01/04 2145 121 120/64 01/04 2136 121 17 120/64 01/04 1914 97.0 129 20 129/77 99 Room Air 01/04 1801 118 01/04 1642 98.9 01/04 1639 141 19 129/56 98 Room Air Intake & Output 01/05 1600 01/05 0800 01/05 0000 01/04 1600 01/04 0800 01/04 0000 Intake Total 120 Output Total 1000 1000 Balance -880 -1000 Intake, Oral 120 Output, Urine 1000 1000 Patient 264 lb 264 lb Weight Weight Reported by Patient Measurement Method obese soft,nt,nd bilateral lower extremities wwp. pitting edema and chronic venous stasis changes. multiple areas of ulceration with greenish disharge. cellulitis. pedal pulses not easily palpable. Assessment/Plan Assessment/Plan 82 y/o f w/ chronic venous stasis and ulceration with cellulitils -needs good local wound care with dankins wet to dry dressing and gisel compression -leg elevation -arterial and venous us -would benefit from unnaboot therapy when cellulitis resolves. Consult Acknowledgment - Thank you for your consult request.
[2018-01-05 08:54] LABS: ABSOLUTE EOSINOPHIL COUNT 0.1 /CUMM (0.0-0.7); ABSOLUTE GRANULOCYTE CT 6.7 /CUMM (1.4-6.5); ABSOLUTE LYMPH COUNT 1.2 /CUMM (1.2-3.4); ABSOLUTE MONOCYTE COUNT 0.9 /CUMM (0.10-0.60); BASOPHIL % 0.2 % (0.0-2.0); EOSINOPHIL % 0.6 % (0-5); GRANULOCYTE % 75.5 % (42.2-75.2); MEAN CORPUSCULAR HGB 29.1 PG (27.0-31.0); MEAN CORPUSCULAR HGB CONC 33.5 G/DL (33.0-37.0); MEAN CORPUSCULAR VOLUME 86.9 FL (81.0-99.0); PLATELET COUNT 290 /CUMM (130-400); RBC DISTRIBUTION WIDTH 13.2 % (11.5-14.5); RED BLOOD CELL CT 3.53 /CUMM (4.20-5.40); WHITE BLOOD CELL COUNT 8.8 /CUMM (4.8-10.8)
[2018-01-05 08:57] LABS: HEMATOCRIT 30.6 % (37-47)
--- NOTE | 2018-01-05 12:09 | ULTRASOUND REPORT ---
EXAMINATION: US TRIPLEX OF LOWER EXTREMITIES, BILATERAL CLINICAL INFORMATION: Bilateral lower extremity edema, swelling, skin changes and tenderness. COMPARISON: None. TECHNIQUE: Color-flow triplex imaging with spectral analysis and compression Doppler were performed on the lower extremities. Imaging of the distal calf veins bilaterally is limited by overlapping bandages. FINDINGS: Respiratory variation, normal compression and augmented flow are noted throughout the lower extremities. The visualized common femoral vein, proximal greater saphenous vein, femoral vein, profunda femoral vein, popliteal vein and visualized mid calf venous segments show no evidence of deep venous thrombosis. There is no Bonner's cyst. IMPRESSION: Normal triplex scan without evidence of deep venous thrombosis involving the bilateral lower extremities.
--- NOTE | 2018-01-05 12:29 | Cons- Cardiology ---
General Information and HPI Consulting Request Date of Consult: 01/05/18 Requested By: Donovan Burr MD Reason for Consult: Atrial fibrillation Source of Information: patient, old records Exam Limitations: no limitations History of Present Illness: Is an 82-year-old female with a history of persistent atrial fibrillation on liquids, hypertension, diabetes, mild aortic stenosis and mild to moderate mitral regurgitation, who now presents with confusion and purulent foul-smelling discharge from her lower extremities. Patient states that she was confused yesterday which prompted her sister to become more concerned and brought her to the emergency room for evaluation. The cardiac standpoint she denies chest pain or shortness of breath. She has not kept her follow-up appointments in the office and has not been seen since April 2017. 82 years old female with past medical history of hypertension and A. fib on Eliquis, borderline diabetes presents to the ED BIBA for family concerns about the patient being confused. The patient was talking to her sister over the phone and she was found to be talking slower than usual and confused about time and place. The patient's srfgnzo-sm-jvi went to check on her and called 911, when the EMT reaches the place it was found poorly kept with lower extremity lesions discharging foul-smelling purulent discharge Vital signs: Blood pressure 129/56, pulse 141, temperature 98.9, pulse ox 98 on room air Labs: CBCs shows WBC 10.2 with left shift, hemoglobin 12.1, platelets 352, PT 16 INR 1.53, PTT 48, sodium 140, potassium 5.9, and BUN 91, creatinine 2.2, glucose 130 , lactic acid 1.6, AST 19, AST 31, CRP 4.2, proBNP 6010, TSH is 3.7, free T4 0.93, urine analysis showed WBC 25-50 X-ray of tibia, fibula, feet did not show obvious evidence of osteomyelitis but recommended if concerns for osteomyelitis persistent to get bone scan Lower extremity imaging including CT was negative for features of osteomyelitis and only showed extensive soft tissue swelling #CHF Patient has history of hypertension and A. fib and was found to have elevated pro PNP, chest x-ray showed coarse reticular interstitial marking suggestive of interstitial edema Admit to telemetry floor Vitals every shift Patient was given 1 dose of Lasix 40 mg in the EDPatient has COCO would hold off Lasix for now till improvement of his kidney function Echocardiography serial EKG and Trops to R/O ACS Strict I's and O's Check hemoglobin A1c and lipid panel Cardiology consult appreciated #A. fib. Should received 2.5 mg Eliquis in the ED because of impaired kidney function Continue home dose Eliquis 5 mg twice a day starting tomorrow Continue metoprolol 50 mg twice a day Confirmed home meds in the morning #Bilateral extensive purulent lower extremity cellulitis with open wounds Continue vancomycin/ceftaz Follow-up on blood culture ID consult appreciated Wound consult appreciated Vascular consult appreciated Venous Doppler U/S tp R/O DVT Arterial DUplex to R/O PVD #COCO and hyperkalemia Most likely due to dehydration and poor oral intake Patient received a 2 L of normal saline in the ED We'll hold off Lasix for now Close monitoring of kidney function Encourage by mouth intake Allergies/Medications Allergies: Coded Allergies: No Known Allergies (01/04/18) Home Med List: Apixaban (Eliquis) 5 MG TABLET 5 MG PO BID afib (Reported) Cholecalciferol (Vitamin D3) (Vitamin D) 1,000 UNIT TABLET 1,000 UNIT PO DAILY D DEFIFICIENCY (Reported) Lisinopril/Hydrochlorothiazide (Zestoretic 20-25 MG Tablet) 20 MG-25 MG TABLET 20-25 MG PO DAILY HTN (Reported) Metoprolol Succ XL (Toprol Xl) 50 MG TAB 50 MG PO BID HTN (Reported) Current Medications: Current Medications Sig/Jessica Start time Last Medication Dose Route Stop Time Status Admin Acetaminophen 650 MG .STK-MED ONE 01/05 0115 DC PO 01/05 0116 Acetaminophen 650 MG Q6P PRN 01/04 2230 AC 01/05 PO 0125 Apixaban 2.5 MG BID 01/05 1000 AC 01/05 PO 0918 Apixaban 2.5 MG ONCE ONE 01/04 2245 DC 01/05 PO 01/04 2246 0111 Ceftazidime 1,000 MG Q24H 01/05 1800 AC IV Ceftazidime 0 .STK-MED ONE 01/04 1817 DC .ROUTE Ceftazidime 1,000 MG ONCE ONE 01/04 1715 DC 01/04 IV 01/04 1716 1819 Cholecalciferol 1,000 IU DAILY 01/05 1000 AC 01/05 PO 0917 Furosemide 0 .STK-MED ONE 01/04 2140 DC IV Furosemide 40 MG ONCE ONE 01/04 2115 DC 01/04 IV 01/04 2116 2145 Hydrocodone Bitart/ 1 TAB Q8P PRN 01/04 2230 AC Acetaminophen PO Lisinopril 20 MG DAILY 01/05 1000 AC 01/05 PO 0918 Metoprolol Succinate 50 MG BID 01/05 1000 AC 01/05 PO 0917 Metoprolol Tartrate 0 .STK-MED ONE 01/04 2140 DC PO Metoprolol Tartrate 50 MG ONCE ONE 01/04 2100 DC 01/04 PO 01/04 2101 2145 Nystatin 1 TACOS BID 01/05 0100 AC 01/05 TOP 0918 Oxycodone/ 1 TAB Q8P PRN 01/04 2230 AC Acetaminophen PO Sodium Chloride 1,000 ML BOLUS ONE 01/04 1815 DC 01/04 IV 01/04 1914 1820 Sodium Chloride 1,000 ML BOLUS ONE 01/04 1715 DC 01/04 IV 01/04 1814 1727 Tramadol HCl 50 MG Q6 PRN 01/05 0015 CAN PO Vancomycin HCl 1,000 MG DAILY 01/05 1000 CAN Dextrose/Water 250 ML IV Vancomycin HCl 1,000 MG ONCE ONE 01/04 1715 DC 01/04 Dextrose/Water 250 ML IV 01/04 1814 1836 Review of Systems Review of Systems: Eyes no blurred or double vision Ears no deafness or ringing Nose and throat no recurrent sinusitis Lungs per history of present illness Heart per history of present illness Abdomen no nausea vomiting Musculoskeletal edema with purulent discharge of her legs Psych no anxiety or depression Neuro without recurrent headache or seizures Endocrine no heat or cold intolerance Past History Travel History Traveled to [place] past 21 day No Medical History Neurological: NONE EENT: NONE Cardiovascular: AFIB, hypertension Respiratory: NONE Gastrointestinal: NONE Hepatic: NONE Renal: NONE Musculoskeletal: NONE Psychiatric: NONE Endocrine: NONE Blood Disorders: NONE Cancer(s): NONE 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: 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 Surgical History Surgical History: non-contributory Family History Relations & Conditions If Any: Relation not specified for: *No pertinent family history Psychosocial History Smoking Status: Never Smoked ETOH Use: denies use Illicit Drug Use: denies illicit drug use Exam & Diagnostic Data Vital Signs and I&O Vital Signs Date Time Temp Pulse Resp B/P B/P Pulse O2 O2 Flow FiO2 Mean Ox Delivery Rate 01/05 0918 100 108/66 01/05 0917 100 108/66 01/05 0628 99.0 100 20 108/66 95 Room Air 01/05 0105 97.5 126 22 102/76 94 Room Air 01/05 0019 Room Air 01/04 2320 97.3 103 20 109/73 98 Room Air 01/04 2233 109 01/04 2145 121 120/64 01/04 2136 121 17 120/64 01/04 1914 97.0 129 20 129/77 99 Room Air 01/04 1801 118 01/04 1642 98.9 01/04 1639 141 19 129/56 98 Room Air Intake & Output 01/05 1600 01/05 0800 01/05 0000 01/04 1600 01/04 0800 01/04 0000 Intake Total 120 Output Total 1000 1000 Balance -880 -1000 Intake, Oral 120 Output, Urine 1000 1000 Patient 264 lb 264 lb Weight Weight Reported by Patient Measurement Method Physical Exam: Patient is a well-developed well-nourished female appearing in no acute distress HEENT is unremarkable Neck is supple there is no JVD Lungs few bibasilar rales Heart irregular rhythm S1 and S2 are normal no gallops or rubs 2/6 soft ejection murmur left sternal border Abdomen bowel sounds positive Extremities 4+ edema with multiple ulcerations purulent discharge and cellulitis Labs/Landon Results: Laboratory Tests 01/05 01/04 01/04 0635 2127 2127 Chemistry Sodium (137 - 145 mmol/L) 141 137 Potassium (3.5 - 5.1 mmol/L) 5.1 5.3 H Chloride (98 - 107 mmol/L) 111 H 110 H Carbon Dioxide (22 - 30 mmol/L) 19 L 17 L Anion Gap (5 - 16) 11 10 BUN (7 - 17 mg/dL) 72 H 79 H Creatinine (0.5 - 1.0 mg/dL) 1.8 H 1.9 H Estimated GFR (>60 ml/min) 27 L 25 L BUN/Creatinine Ratio (7 - 25 %) 40.0 H 41.6 H Glucose (65 - 99 mg/dL) 151 H Lactic Acid (0.7 - 2.1 mmol/L) 1.1 Calcium (8.4 - 10.2 mg/dL) 8.8 Phosphorus (2.5 - 4.5 mg/dL) 3.9 Magnesium (1.6 - 2.3 mg/dL) 2.3 Troponin I (< 0.11 ng/ml) 0.01 Triglycerides (<150 mg/dL) 43 Cholesterol (<200 MG/DL) 110 LDL Cholesterol, Calc (65 - 129 mg/dL) 56 L HDL Cholesterol (40 - 60 mg/dL) 46 Cholesterol/HDL Ratio (0.00 - 4.23 %) 2 TSH (0.270 - 4.200 uIU/mL) 3.740 Free T4 (0.85 - 1.93 ng/dL) 0.93 Hematology CBC w Diff NO MAN DIFF REQ WBC (4.8 - 10.8 /CUMM) 8.8 RBC (4.20 - 5.40 /CUMM) 3.53 L Hgb (12.0 - 16.0 G/DL) 10.3 L Hct (37 - 47 %) 30.6 L MCV (81.0 - 99.0 FL) 86.9 MCH (27.0 - 31.0 PG) 29.1 MCHC (33.0 - 37.0 G/DL) 33.5 RDW (11.5 - 14.5 %) 13.2 Plt Count (130 - 400 /CUMM) 290 MPV (7.4 - 10.4 FL) 8.1 Gran % (42.2 - 75.2 %) 75.5 H Lymphocytes % (20.5 - 51.1 %) 13.4 L Monocytes % (1.7 - 9.3 %) 10.3 H Eosinophils % (0 - 5 %) 0.6 Basophils % (0.0 - 2.0 %) 0.2 Absolute Granulocytes (1.4 - 6.5 /CUMM) 6.7 H Absolute Lymphocytes (1.2 - 3.4 /CUMM) 1.2 Absolute Monocytes (0.10 - 0.60 /CUMM) 0.9 H Absolute Eosinophils (0.0 - 0.7 /CUMM) 0.1 Absolute Basophils (0.0 - 0.2 /CUMM) 0 01/04 01/04 1950 1728 Chemistry Sodium (137 - 145 mmol/L) 140 Potassium (3.5 - 5.1 mmol/L) 5.9 H Chloride (98 - 107 mmol/L) 108 H Carbon Dioxide (22 - 30 mmol/L) 15 L Anion Gap (5 - 16) 16 BUN (7 - 17 mg/dL) 91 H Creatinine (0.5 - 1.0 mg/dL) 2.2 H Estimated GFR (>60 ml/min) 21 L BUN/Creatinine Ratio (7 - 25 %) 41.4 H Glucose (65 - 99 mg/dL) 130 H Hemoglobin A1c (4.2 - 5.8 %) 6.1 H Lactic Acid (0.7 - 2.1 mmol/L) 1.6 Calcium (8.4 - 10.2 mg/dL) 9.9 Total Bilirubin (0.2 - 1.3 mg/dL) 1.1 AST (14 - 36 U/L) 19 ALT (9 - 52 U/L) 31 Alkaline Phosphatase (<127 U/L) 122 Troponin I (< 0.11 ng/ml) 0.01 C-Reactive Prot, Quant (<1.0 mg/dL) 4.2 H [id number]-[id number] Pept (<125 pg/mL) 6010 H Total Protein (6.3 - 8.2 g/dL) 7.2 Albumin (3.5 - 5.0 g/dL) 3.9 Globulin (1.9 - 4.2 gm/dL) 3.3 Albumin/Globulin Ratio (1.1 - 2.2 %) 1.2 Coagulation PT (9.4 - 12.5 SEC) 16.0 H INR (0.90 - 1.19) 1.53 H APTT (25 - 37 SEC) 48 H Hematology CBC w Diff NO MAN DIFF REQ WBC (4.8 - 10.8 /CUMM) 10.2 RBC (4.20 - 5.40 /CUMM) 4.18 L Hgb (12.0 - 16.0 G/DL) 12.1 Hct (37 - 47 %) 36.2 L MCV (81.0 - 99.0 FL) 86.5 MCH (27.0 - 31.0 PG) 28.9 MCHC (33.0 - 37.0 G/DL) 33.4 RDW (11.5 - 14.5 %) 13.1 Plt Count (130 - 400 /CUMM) 352 MPV (7.4 - 10.4 FL) 8.5 Gran % (42.2 - 75.2 %) 81.2 H Lymphocytes % (20.5 - 51.1 %) 11.2 L Monocytes % (1.7 - 9.3 %) 7.4 Eosinophils % (0 - 5 %) 0.2 Basophils % (0.0 - 2.0 %) 0 Absolute Granulocytes (1.4 - 6.5 /CUMM) 8.3 H Absolute Lymphocytes (1.2 - 3.4 /CUMM) 1.1 L Absolute Monocytes (0.10 - 0.60 /CUMM) 0.7 H Absolute Eosinophils (0.0 - 0.7 /CUMM) 0 Absolute Basophils (0.0 - 0.2 /CUMM) 0 ESR Westergren (0 - 20 MM) 108 H Urines Urine Color (YEL,AMB,STR) YEL Urine Clarity (CLEAR) CLEAR Urine pH (5.0 - 8.0) 6.0 Ur Specific [place] (1.001 - 1.035) 1.020 Urine Protein (NEG,<30 MG/DL) TRACE H Urine Ketones (NEG) TRACE H Urine Nitrite (NEG) NEG Urine Bilirubin (NEG) NEG Urine Urobilinogen (0.1 - 1.0 EU/dl) 0.2 Ur Leukocyte Esterase (NEG) MOD H Ur Microscopic SEDIMENT EXAMINED Urine RBC (0 - 5 /HPF) RARE Urine WBC (0 - 2 /HPF) 25-50 H Ur Epithelial Cells (NONE,FEW) OCCAS Urine Bacteria (NEG/NONE) FEW H Hyaline Casts (0/LPF) FEW H Urine Hemoglobin (NEG) NEG Urine Glucose (N MG/DL) NEG Diagnostic Data EKG Results Atrial fibrillation with rapid ventricular response CXR Results IMPRESSION: Coarsened reticular and interstitial markings with central vascular prominence and enlarged cardiac silhouette. In the acute setting without priors to compare it would be difficult to exclude a component of interstitial edema. Assessment/Plan Assessment/Plan 1. Persistent atrial fibrillation on Eliquis now with rapid ventricular response most likely secondary to pain 2. Mild aortic sclerosis with mild to moderate mitral regurgitation by echocardiogram 3. Acute diastolic heart failure BNP of 6010 last ejection fraction by echo performed April 2017 was 50% 4. Chronic venous stasis changes with ulceration and cellulitis 5. Acute renal insufficiency Recommendations 1. I would continue to look was for stroke prevention in atrial fibrillation 2. Continue metoprolol for rate control 3. Diuresis monitoring renal function closely 4. Antibiotics per ID and vascular 5. Repeat echocardiogram to reassess LV function and valvular heart disease Thank you for allowing [facility] to participate in the care of your patient. Consult Acknowledgment - Thank you for your consult request.
--- NOTE | 2018-01-05 13:15 | ULTRASOUND REPORT ---
EXAMINATION: COLOR-FLOW DUPLEX IMAGING OF THE BILATERAL LOWER EXTREMITY ARTERIAL SYSTEM VELOCITY MEASUREMENTS THROUGHOUT THE FEMORAL ARTERIES. CLINICAL INFORMATION: This is a 82 year-old female with bilateral toe ischemia. RIGHT FEMORAL RUNOFF VELOCITIES: The right common femoral artery peak systolic velocity is 175 cm/s. The waveform is slightly triphasic. The right profunda femoral artery peak systolic velocity is 65 cm/s. The waveform is monophasic. The right proximal superficial femoral artery peak systolic velocity is 141 cm/s. The waveform is monophasic. The right mid superficial femoral artery peak systolic velocity is 169 cm/s. The waveform is monophasic. The right distal right superficial femoral artery peak systolic velocity is 184 cm/s. The waveform is monophasic. The right popliteal artery peak systolic velocity is 89 cm/s. The waveform is monophasic. The right posterior tibial artery velocity peak systolic velocity is 111 cm/s. The waveform is monophasic. The right dorsalis pedis peak systolic velocity is 86 cm/s. The waveform is monophasic. The right anterior tibial and peroneal arteries are not visualized. LEFT FEMORAL RUNOFF VELOCITIES: The left common femoral artery peak systolic velocity is 172 cm/s. The waveform is slightly triphasic. The left profunda femoral artery peak systolic velocity is 67 cm/s. The waveform is triphasic. The left proximal superficial femoral artery peak systolic velocity is 164 cm/s. The waveform is monophasic. The left mid superficial femoral artery peak systolic velocity is 159 cm/s. The waveform is monophasic. The left distal right superficial femoral artery peak systolic velocity is 155 cm/s. The waveform is monophasic. The left posterior tibial artery velocity peak systolic velocity is 89 cm/s. The waveform is monophasic. The left dorsalis pedis peak systolic velocity is 93 cm/s. The waveform is monophasic. The left popliteal, anterior tibial and peroneal arteries are not visualized. IMPRESSION: Limited evaluation, with nonvisualization of the left popliteal artery and bilateral anterior tibial and peroneal arteries. There are abnormal, monophasic waveforms seen of the bilateral femoral, profunda femoral and popliteal arteries. No significant peak systolic velocity reduction is seen in visualized segments. Recommend further evaluation with CTA or MRA.
--- NOTE | 2018-01-05 14:56 | Cons- Infect Disease ---
General Information and HPI Consulting Request Date of Consult: 01/05/18 Requested By: Donovan Burr MD Reason for Consult: abx advice Source of Information: patient, primary team Exam Limitations: clinical condition History of Present Illness: 82 years old female with past medical history of hypertension, atrial fibrillation, and borderline diabetes presented to the ED BIBA on 01/04 after developing confusion. The patient's joasvul-jo-iel called 911; EMT noted patient unkempt and lower extremity lesions with foul-smelling purulent drainage. The patient reported that for many months her leg and feet skin was"bubbly"and that she was wearing the stocking since the beginning of November and was not able to take a shower or change it. ED course: Vital signs: Blood pressure 129/56, pulse 141, temperature 98.9, pulse ox 98 on room air Labs: CBCs shows WBC 10.2 with left shift, hemoglobin 12.1, platelets 352, PT 16 INR 1.53, PTT 48, sodium 140, potassium 5.9, and BUN 91, creatinine 2.2, glucose 130 , lactic acid 1.6, AST 19, AST 31, CRP 4.2, proBNP 6010, TSH is 3.7, free T4 0.93, urine analysis showed WBC 25-50 X-ray of tibia, fibula, feet did not show obvious evidence of osteomyelitis. Patient afebrile since admission. S/P debridement; feeling better. Allergies/Medications Allergies: Coded Allergies: No Known Allergies (01/04/18) Home Med List: Apixaban (Eliquis) 5 MG TABLET 5 MG PO BID afib (Reported) Cholecalciferol (Vitamin D3) (Vitamin D) 1,000 UNIT TABLET 1,000 UNIT PO DAILY D DEFIFICIENCY (Reported) Lisinopril/Hydrochlorothiazide (Zestoretic 20-25 MG Tablet) 20 MG-25 MG TABLET 20-25 MG PO DAILY HTN (Reported) Metoprolol Succ XL (Toprol Xl) 50 MG TAB 50 MG PO BID HTN (Reported) Current Medications: Current Medications Sig/Jessica Start time Last Medication Dose Route Stop Time Status Admin Acetaminophen 650 MG .STK-MED ONE 01/05 0115 DC PO 01/05 0116 Acetaminophen 650 MG Q6P PRN 01/04 2230 AC 01/05 PO 0125 Apixaban 2.5 MG BID 01/05 1000 AC 01/05 PO 0918 Apixaban 2.5 MG ONCE ONE 01/04 2245 DC 01/05 PO 01/04 2246 0111 Ceftazidime 1,000 MG Q24H 01/05 1800 AC IV Ceftazidime 0 .STK-MED ONE 01/04 1817 DC .ROUTE Ceftazidime 1,000 MG ONCE ONE 01/04 1715 DC 01/04 IV 01/04 1716 1819 Cholecalciferol 1,000 IU DAILY 01/05 1000 AC 01/05 PO 0917 Furosemide 0 .STK-MED ONE 01/04 2140 DC IV Furosemide 40 MG ONCE ONE 01/04 2115 DC 01/04 IV 01/04 211 2145 Hydrocodone Bitart/ 1 TAB Q8P PRN 01/04 2230 AC Acetaminophen PO Lisinopril 20 MG DAILY 01/05 1000 AC 01/05 PO 0918 Metoprolol Succinate 50 MG BID 01/05 1000 AC 01/05 PO 0917 Metoprolol Tartrate 0 .STK-MED ONE 01/04 2140 DC PO Metoprolol Tartrate 50 MG ONCE ONE 01/04 2100 DC 01/04 PO 01/04 2101 2145 Nystatin 1 TACOS BID 01/05 0100 AC 01/05 TOP 0918 Oxycodone/ 1 TAB Q8P PRN 01/04 2230 AC Acetaminophen PO Sodium Chloride 1,000 ML BOLUS ONE 01/04 1815 DC 01/04 IV 01/04 1914 1820 Sodium Chloride 1,000 ML BOLUS ONE 01/04 1715 DC 01/04 IV 01/04 1814 1727 Tramadol HCl 50 MG Q6 PRN 01/05 0015 CAN PO Vancomycin HCl 1,000 MG DAILY 01/05 1000 CAN Dextrose/Water 250 ML IV Vancomycin HCl 1,000 MG ONCE ONE 01/04 1715 DC 01/04 Dextrose/Water 250 ML IV 01/04 1814 1836 Past History Travel History Traveled to [place] past 21 day No Medical History Neurological: NONE EENT: NONE Cardiovascular: AFIB, hypertension Respiratory: NONE Gastrointestinal: NONE Hepatic: NONE Renal: NONE Musculoskeletal: NONE Psychiatric: NONE Endocrine: NONE Blood Disorders: NONE Cancer(s): NONE 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 Patient reports a burning sensation in her lower extremity, discomfort and difficulty walking. In addition she endorses mild exertional shortness of breath and poor oral intake. She denies any fever, chills, nausea, vomiting, diarrhea or constipation, dysurea or frequency. She also denies any chest pain, orthopnea or paroxysmal nocturnal dyspnea, focal weakness or facial droop Patient reports that she was not taking her home meds for the past few days however she think the last time she took her Eliquis was 2 days ago Patient lives alone. Exam & Diagnostic Data Last 24 Hrs of Vital Signs/I&O Vital Signs Date Time Temp Pulse Resp B/P B/P Pulse O2 O2 Flow FiO2 Mean Ox Delivery Rate 01/05 0918 100 108/66 01/05 0917 100 108/66 01/05 0628 99.0 100 20 108/66 95 Room Air 01/05 0105 97.5 126 22 102/76 94 Room Air 01/05 0019 Room Air 01/04 2320 97.3 103 20 109/73 98 Room Air 01/04 2233 109 01/04 2145 121 120/64 01/04 2136 121 17 120/64 01/04 1914 97.0 129 20 129/77 99 Room Air 01/04 1801 118 01/04 1642 98.9 01/04 1639 141 19 129/56 98 Room Air Intake & Output 01/05 1600 01/05 0800 01/05 0000 Intake Total 400 120 Output Total 1000 1000 Balance 400 -880 -1000 Intake, IV 10 Intake, Oral 390 120 Output, Urine 1000 1000 Patient 264 lb 264 lb Weight Weight Reported by Patient Measurement Method Physical Exam Other Physical Findings: General Appearance: Alert, Oriented X3, Cooperative HEENT AT/sclera nonicteric Neck: no JVD Cardiovascular: irregular rate, 1/6 systolic murmur Lungs: Clear to Auscultation, Normal Air Movement Abdomen: Normal Bowel Sounds, Soft, No Tenderness Extremities: BLE edema, skin discoloration, ulcerative foul-smelling wounds Neuro: alert and awake Last 24 Hours of Lab Results: Laboratory Tests 01/05 01/04 01/04 0635 7 2127 Chemistry Sodium (137 - 145 mmol/L) 141 137 Potassium (3.5 - 5.1 mmol/L) 5.1 5.3 H Chloride (98 - 107 mmol/L) 111 H 110 H Carbon Dioxide (22 - 30 mmol/L) 19 L 17 L Anion Gap (5 - 16) 11 10 BUN (7 - 17 mg/dL) 72 H 79 H Creatinine (0.5 - 1.0 mg/dL) 1.8 H 1.9 H Estimated GFR (>60 ml/min) 27 L 25 L BUN/Creatinine Ratio (7 - 25 %) 40.0 H 41.6 H Glucose (65 - 99 mg/dL) 151 H Lactic Acid (0.7 - 2.1 mmol/L) 1.1 Calcium (8.4 - 10.2 mg/dL) 8.8 Phosphorus (2.5 - 4.5 mg/dL) 3.9 Magnesium (1.6 - 2.3 mg/dL) 2.3 Troponin I (< 0.11 ng/ml) 0.01 Triglycerides (<150 mg/dL) 43 Cholesterol (<200 MG/DL) 110 LDL Cholesterol, Calc (65 - 129 mg/dL) 56 L HDL Cholesterol (40 - 60 mg/dL) 46 Cholesterol/HDL Ratio (0.00 - 4.23 %) 2 TSH (0.270 - 4.200 uIU/mL) 3.740 Free T4 (0.85 - 1.93 ng/dL) 0.93 Hematology CBC w Diff NO MAN DIFF REQ WBC (4.8 - 10.8 /CUMM) 8.8 RBC (4.20 - 5.40 /CUMM) 3.53 L Hgb (12.0 - 16.0 G/DL) 10.3 L Hct (37 - 47 %) 30.6 L MCV (81.0 - 99.0 FL) 86.9 MCH (27.0 - 31.0 PG) 29.1 MCHC (33.0 - 37.0 G/DL) 33.5 RDW (11.5 - 14.5 %) 13.2 Plt Count (130 - 400 /CUMM) 290 MPV (7.4 - 10.4 FL) 8.1 Gran % (42.2 - 75.2 %) 75.5 H Lymphocytes % (20.5 - 51.1 %) 13.4 L Monocytes % (1.7 - 9.3 %) 10.3 H Eosinophils % (0 - 5 %) 0.6 Basophils % (0.0 - 2.0 %) 0.2 Absolute Granulocytes (1.4 - 6.5 /CUMM) 6.7 H Absolute Lymphocytes (1.2 - 3.4 /CUMM) 1.2 Absolute Monocytes (0.10 - 0.60 /CUMM) 0.9 H Absolute Eosinophils (0.0 - 0.7 /CUMM) 0.1 Absolute Basophils (0.0 - 0.2 /CUMM) 0 01/04 01/04 1950 1728 Chemistry Sodium (137 - 145 mmol/L) 140 Potassium (3.5 - 5.1 mmol/L) 5.9 H Chloride (98 - 107 mmol/L) 108 H Carbon Dioxide (22 - 30 mmol/L) 15 L Anion Gap (5 - 16) 16 BUN (7 - 17 mg/dL) 91 H Creatinine (0.5 - 1.0 mg/dL) 2.2 H Estimated GFR (>60 ml/min) 21 L BUN/Creatinine Ratio (7 - 25 %) 41.4 H Glucose (65 - 99 mg/dL) 130 H Hemoglobin A1c (4.2 - 5.8 %) 6.1 H Lactic Acid (0.7 - 2.1 mmol/L) 1.6 Calcium (8.4 - 10.2 mg/dL) 9.9 Total Bilirubin (0.2 - 1.3 mg/dL) 1.1 AST (14 - 36 U/L) 19 ALT (9 - 52 U/L) 31 Alkaline Phosphatase (<127 U/L) 122 Troponin I (< 0.11 ng/ml) 0.01 C-Reactive Prot, Quant (<1.0 mg/dL) 4.2 H Bcg-A-Tkhzrfhlhgk Pept (<125 pg/mL) 6010 H Total Protein (6.3 - 8.2 g/dL) 7.2 Albumin (3.5 - 5.0 g/dL) 3.9 Globulin (1.9 - 4.2 gm/dL) 3.3 Albumin/Globulin Ratio (1.1 - 2.2 %) 1.2 Coagulation PT (9.4 - 12.5 SEC) 16.0 H INR (0.90 - 1.19) 1.53 H APTT (25 - 37 SEC) 48 H Hematology CBC w Diff NO MAN DIFF REQ WBC (4.8 - 10.8 /CUMM) 10.2 RBC (4.20 - 5.40 /CUMM) 4.18 L Hgb (12.0 - 16.0 G/DL) 12.1 Hct (37 - 47 %) 36.2 L MCV (81.0 - 99.0 FL) 86.5 MCH (27.0 - 31.0 PG) 28.9 MCHC (33.0 - 37.0 G/DL) 33.4 RDW (11.5 - 14.5 %) 13.1 Plt Count (130 - 400 /CUMM) 352 MPV (7.4 - 10.4 FL) 8.5 Gran % (42.2 - 75.2 %) 81.2 H Lymphocytes % (20.5 - 51.1 %) 11.2 L Monocytes % (1.7 - 9.3 %) 7.4 Eosinophils % (0 - 5 %) 0.2 Basophils % (0.0 - 2.0 %) 0 Absolute Granulocytes (1.4 - 6.5 /CUMM) 8.3 H Absolute Lymphocytes (1.2 - 3.4 /CUMM) 1.1 L Absolute Monocytes (0.10 - 0.60 /CUMM) 0.7 H Absolute Eosinophils (0.0 - 0.7 /CUMM) 0 Absolute Basophils (0.0 - 0.2 /CUMM) 0 ESR Westergren (0 - 20 MM) 108 H Urines Urine Color (YEL,AMB,STR) YEL Urine Clarity (CLEAR) CLEAR Urine pH (5.0 - 8.0) 6.0 Ur Specific [place] (1.001 - 1.035) 1.020 Urine Protein (NEG,<30 MG/DL) TRACE H Urine Ketones (NEG) TRACE H Urine Nitrite (NEG) NEG Urine Bilirubin (NEG) NEG Urine Urobilinogen (0.1 - 1.0 EU/dl) 0.2 Ur Leukocyte Esterase (NEG) MOD H Ur Microscopic SEDIMENT EXAMINED Urine RBC (0 - 5 /HPF) RARE Urine WBC (0 - 2 /HPF) 25-50 H Ur Epithelial Cells (NONE,FEW) OCCAS Urine Bacteria (NEG/NONE) FEW H Hyaline Casts (0/LPF) FEW H Urine Hemoglobin (NEG) NEG Urine Glucose (N MG/DL) NEG Last 24 Hours of Landon Results: SPEC #: [id number] GRAYSON: 01/04/18 STATUS: RES RECD: 01/04/[address]: Nacho Johnson SOURCE: BLOOD ENTR: 01/04/[address]: Malissa CANO,Bryan Maher SPDESC: 2ND/VENOUS ORDERED: BLOOD CULTURE Procedure Result > BLOOD CULTURE REPORT Preliminary 01/05/18 No growth after 1 day incubation. Specimen is examined continuously for 5 days before final report unless culture becomes positive. Diagnostic Data Recent Imaging Findings: CT LE IMPRESSION: Evidence of cellulitis with no discrete abscess. No acute osseous abnormalities. No evidence of osteomyelitis. DICTATED BY: Rajeev Fuller MD DATE/TIME DICTATED:01/04/182300 TECHNICAL SERVICES COORDINATOR:CALLUM DATE/TIME TRANSCRIBED:01/04/182300 US LE's IMPRESSION: Limited evaluation, with nonvisualization of the left popliteal artery and bilateral anterior tibial and peroneal arteries. There are abnormal, monophasic waveforms seen of the bilateral femoral, profunda femoral and popliteal arteries. No significant peak systolic velocity reduction is seen in visualized segments. Recommend further evaluation with CTA or MRA. DICTATED BY: Bryan Zhang MD DATE/TIME DICTATED:01/05/181253 TECHNICAL SERVICES COORDINATOR:CALLUM DATE/TIME TRANSCRIBED:01/05/181253 Assessment/Plan Assessment/Plan Impression: 82 years old female with past medical history of hypertension, atrial fibrillation, and borderline diabetes presented admitted 01/04. Bilateral lower extremity venous stasis ulcers and cellulitis Eval PAD Question COCO/underlying CKD Suggestion: 1. Local wound culture; obtain nasal MRSA surv cx. 2. Empiric iv abx Unasyn 1.5 gm q 8 h. 3. F/u vasc sx recom. 4. Trend CBC, BMP. Consult Acknowledgment - Thank you for your consult request.
[2018-01-05 15:07] VITALS: BP 100/62
[2018-01-05 22:40] VITALS: BP 102/60
[2018-01-06 07:14] VITALS: BP 108/52
--- NOTE | 2018-01-06 07:31 | PN- Housestaff ---
See Addendum Subjective Follow-up For: BLE cellulitis Afib with RVR COCO Hyperkalemia Acute on CHF Tele-Events Since Last Visit: Afib HR 84-119 Subjective: Patient reports feeling warm overnight but was afebrile. No acute events overnight Review of Systems Constitutional: Reports: see HPI. Objective Last 24 Hrs of Vital Signs/I&O Vital Signs Date Time Temp Pulse Resp B/P B/P Pulse O2 O2 Flow FiO2 Mean Ox Delivery Rate 01/06 1052 98.0 78 16 142/72 01/06 1052 98.0 78 16 142/82 01/06 0714 98.7 77 16 108/52 96 Room Air 01/06 0000 Room Air 01/05 2240 99.4 79 16 102/60 95 Room Air 01/05 1736 62 100/62 01/05 1507 97.7 62 20 100/62 96 Intake & Output 01/06 1600 01/06 0800 01/06 0000 Intake Total 600 Output Total 350 650 Balance -350 -50 Intake, Oral 600 Output, Urine 350 650 Patient 249 lb Weight Weight Bed scale Measurement Method Physical Exam General Appearance: Alert, Oriented X3, Cooperative, No Acute Distress Cardiovascular: irregular rate, 1/6 systolic murmur Lungs: Clear to Auscultation, Normal Air Movement Abdomen: Normal Bowel Sounds, Soft, No Tenderness Extremities: BLE edema, skin discoloration, foul-smelling ulcerated lesions with yellowish drainage Current Medications: Current Medications Sig/Jessica Start time Last Medication Dose Route Stop Time Status Admin Acetaminophen 650 MG .STK-MED ONE 01/05 2053 DC PO 01/05 2054 Acetaminophen 650 MG Q6P PRN 01/04 2230 AC 01/05 PO 205 Ampicillin Sodium/ 1,500 MG Q8H 01/06 0728 AC 01/06 Sulbactam Sodium IV 1053 Sodium Chloride 100 ML Apixaban 2.5 MG BID 01/05 1000 AC 01/06 PO 1051 Ceftazidime 1,000 MG Q24H 01/05 1800 DC 01/05 IV 1738 Cholecalciferol 1,000 IU DAILY 01/05 1000 AC 01/06 PO 1052 Hydrocodone Bitart/ 1 TAB Q8P PRN 01/04 2230 AC Acetaminophen PO Lisinopril 20 MG DAILY 01/05 1000 AC 01/06 PO 1052 Metoprolol Succinate 100 MG DAILY 01/06 1000 AC 01/06 PO 1052 Metoprolol Succinate 50 MG 1500 01/05 1500 DC PO 01/05 1501 Metoprolol Succinate 50 MG BID 01/05 1000 DC 01/05 PO 0917 Nystatin 1 TACOS BID 01/05 0100 AC 01/06 TOP 1117 Oxycodone/ 1 TAB Q8P PRN 01/04 2230 AC Acetaminophen PO Patient Medication 1 ED ONE ONE 01/05 1515 DC Teaching ED 01/05 1516 Sodium Hypochlorite 1 TACOS BID 01/06 1013 AC TOP Zinc Oxide 1 TACOS DAILY NEEDED PRN 01/06 1030 AC TOP Last 24 Hrs of Lab/Landon Results Last 24 Hrs of Labs/Mics: Laboratory Tests 01/06/18 0650: Anion Gap 10, Estimated GFR 36 L, BUN/Creatinine Ratio 40.7 H, CBC w Diff NO MAN DIFF REQ, RBC 3.61 L, MCV 87.0, MCH 29.2, MCHC 33.5, RDW 13.2, MPV 8.2, Gran % 69.3, Lymphocytes % 19.6 L, Monocytes % 9.9 H, Eosinophils % 1.1, Basophils % 0.1, Absolute Granulocytes 5.7, Absolute Lymphocytes 1.6, Absolute Monocytes 0.8 H, Absolute Eosinophils 0.1, Absolute Basophils 0 Microbiology 01/05 2000 UPPER RESP: Surveillance Culture - RECD 01/05 151 EXTREMITIE: Culture & Sensitivity - COLB 01/05 1512 EXTREMITIE: Gram Stain - COLB Lines/Diet/Fluids Catheters/Tubes: shah Assessment/Plan Assessment: Ms. Head is a 82 yo female with past medical history of hypertension and Afib on Eliquis, borderline diabetes presents to the ED BIBA for family concerns for AMS Problem list: BLE cellulitis Afib with RVR COCO Hyperkalemia Acute on CHF Plan: * US arterial Doppler equivocal * US venous Doppler negative * Monitor potassium and renal function * Continue hydrocodone, Apixaban * Continue metoprolol 100 daily for rate control. Discussed with Dr. Alicia ( cardio) * PT evaluation for gait stability * Obtain extremities wound cultures * Positive blood cultures most likely a contaminant, rpt BC x 2 * Vancomycin 1.5g x 1 dose * Vancomycin level in a.m. * Apply zinc oxide to sacral and coccygeal wounds * Cardiology recommendations appreciated * ID recommendations appreciated * Wound care recommendations appreciated * Vascular recommendations appreciated Problem List: 1. Atrial fibrillation with RVR 2. Acute on chronic diastolic CHF (congestive heart failure) 3. COCO (acute kidney injury) Pain Ratin Pain Location: BLE Pain Goal: Remain pain free Pain Plan: Hydrodocone, Perocet Tomorrow's Labs & Rationales: BEP for renal function
[2018-01-06 09:08] LABS: ABSOLUTE BASOPHIL COUNT 0 /CUMM (0.0-0.2); ABSOLUTE EOSINOPHIL COUNT 0.1 /CUMM (0.0-0.7); ABSOLUTE GRANULOCYTE CT 5.7 /CUMM (1.4-6.5); ABSOLUTE LYMPH COUNT 1.6 /CUMM (1.2-3.4); ABSOLUTE MONOCYTE COUNT 0.8 /CUMM (0.10-0.60); BASOPHIL % 0.1 % (0.0-2.0); EOSINOPHIL % 1.1 % (0-5); GRANULOCYTE % 69.3 % (42.2-75.2); HEMATOCRIT 31.4 % (37-47); MEAN CORPUSCULAR HGB 29.2 PG (27.0-31.0); MEAN CORPUSCULAR HGB CONC 33.5 G/DL (33.0-37.0); MEAN PLATELET VOLUME 8.2 FL (7.4-10.4); PLATELET COUNT 276 /CUMM (130-400); RBC DISTRIBUTION WIDTH 13.2 % (11.5-14.5); RED BLOOD CELL CT 3.61 /CUMM (4.20-5.40); WHITE BLOOD CELL COUNT 8.2 /CUMM (4.8-10.8)
--- NOTE | 2018-01-06 11:04 | PN- Cardiology ---
Subjective Subjective: The patient is awake, alert The events of the last 24 hours as well as telemetry were reviewed. Review of Systems: The review of systems is negative for chest pains, palpitations nor lightheadedness. The remainder of the 14 point review of systems is noncontributory with the exception of above. Objective Vital Signs and I&Os Vital Signs Date Time Temp Pulse Resp B/P B/P Pulse O2 O2 Flow FiO2 Mean Ox Delivery Rate 01/06 1052 98.0 78 16 142/72 01/06 1052 98.0 78 16 142/82 01/06 0714 98.7 77 16 108/52 96 Room Air 01/06 0000 Room Air 01/05 2240 99.4 79 16 102/60 95 Room Air 01/05 1736 62 100/62 01/05 1507 97.7 62 20 100/62 96 Intake & Output 01/06 1600 01/06 0800 01/06 0000 01/05 1600 01/05 0800 01/05 0000 Intake Total 600 400 120 Output Total 350 935 272 5847 1000 Balance -350 -50 -200 -880 -1000 Intake, IV 10 Intake, Oral 600 390 120 Output, Urine 350 203 081 5390 1000 Patient 249 lb 264 lb 264 lb Weight Weight Bed scale Reported by Patient Measurement Method Physical Exam: General: Nontoxic, no apparent distress. HEENT: Sclera and conjunctiva within normal limits, without xanthelasmas. Neck: Carotids 2+ without bruits. Respiratory: Clear to auscultation, air movement is good, without accessory respiratory muscle use. Heart: Regular rate and rhythm, 2/6 systolic ejection murmur at the right sternal border with crescendo decrescendo quality, without JVD. Abdomen: Soft, nontender, no masses, normoactive bowel sounds. Extremities: Without clubbing, cyanosis, + edema, lower extremity cellulitis. Neuro: Nonfocal exam, strength, 5 out of 5 Skin: Within normal limits without lesions. Psych: Mood and affect: Normal Current Medications: Current Medications Sig/Jessica Start time Last Medication Dose Route Stop Time Status Admin Acetaminophen 650 MG .STK-MED ONE 01/05 2053 DC PO 01/05 2054 Acetaminophen 650 MG Q6P PRN 01/04 2230 AC 01/05 PO 2053 Ampicillin Sodium/ 1,500 MG Q8H 01/06 728 AC 01/06 Sulbactam Sodium IV 1053 Sodium Chloride 100 ML Apixaban 2.5 MG BID 01/05 1000 AC 01/06 PO 1051 Ceftazidime 1,000 MG Q24H 01/05 1800 DC 01/05 IV 1738 Cholecalciferol 1,000 IU DAILY 01/05 1000 AC 01/06 PO 1052 Hydrocodone Bitart/ 1 TAB Q8P PRN 01/04 2230 AC Acetaminophen PO Lisinopril 20 MG DAILY 01/05 1000 AC 01/06 PO 1052 Metoprolol Succinate 100 MG DAILY 01/06 1000 AC 01/06 PO 1052 Metoprolol Succinate 50 MG 1500 01/05 1500 DC PO 01/05 1501 Metoprolol Succinate 50 MG BID 01/05 1000 DC 01/05 PO 0917 Nystatin 1 TACOS BID 01/05 0100 AC 01/05 TOP 0918 Oxycodone/ 1 TAB Q8P PRN 01/04 2230 AC Acetaminophen PO Patient Medication 1 ED ONE ONE 01/05 1515 DC Teaching ED 01/05 1516 Sodium Hypochlorite 1 TACOS BID 01/06 1013 AC TOP Zinc Oxide 1 TACOS DAILY NEEDED PRN 01/06 1030 AC TOP Results Last 48 Hrs of Labs/Mics: Laboratory Tests 01/06/18 0650: Anion Gap 10, Estimated GFR 36 L, BUN/Creatinine Ratio 40.7 H, CBC w Diff NO MAN DIFF REQ, RBC 3.61 L, MCV 87.0, MCH 29.2, MCHC 33.5, RDW 13.2, MPV 8.2, Gran % 69.3, Lymphocytes % 19.6 L, Monocytes % 9.9 H, Eosinophils % 1.1, Basophils % 0.1, Absolute Granulocytes 5.7, Absolute Lymphocytes 1.6, Absolute Monocytes 0.8 H, Absolute Eosinophils 0.1, Absolute Basophils 0 01/05/18 0635: Anion Gap 11, Estimated GFR 27 L, BUN/Creatinine Ratio 40.0 H, Triglycerides 43, Cholesterol 110, LDL Cholesterol, Calc 56 L, HDL Cholesterol 46, Cholesterol/HDL Ratio 2, CBC w Diff NO MAN DIFF REQ, RBC 3.53 L, MCV 86.9, MCH 29.1, MCHC 33.5, RDW 13.2, MPV 8.1, Gran % 75.5 H, Lymphocytes % 13.4 L, Monocytes % 10.3 H, Eosinophils % 0.6, Basophils % 0.2, Absolute Granulocytes 6.7 H, Absolute Lymphocytes 1.2, Absolute Monocytes 0.9 H, Absolute Eosinophils 0.1, Absolute Basophils 0 01/04/182126: Lactic Acid 1.1 01/04/182126: Anion Gap 10, Estimated GFR 25 L, BUN/Creatinine Ratio 41.6 H, Glucose 151 H, Calcium 8.8, Phosphorus 3.9, Magnesium 2.3, Troponin I 0.01, TSH 3.740, Free T4 0.93 01/04/181949: Urine Color YEL, Urine Clarity CLEAR, Urine pH 6.0, Ur Specific [place] 1.020, Urine Protein TRACE H, Urine Ketones TRACE H, Urine Nitrite NEG, Urine Bilirubin NEG, Urine Urobilinogen 0.2, Ur Leukocyte Esterase MOD H, Ur Microscopic SEDIMENT EXAMINED, Urine RBC RARE, Urine WBC 25-50 H, Ur Epithelial Cells OCCAS, Urine Bacteria FEW H, Hyaline Casts FEW H, Urine Hemoglobin NEG, Urine Glucose NEG 01/04/181727: Anion Gap 16, Estimated GFR 21 L, BUN/Creatinine Ratio 41.4 H, Glucose 130 H, Hemoglobin A1c 6.1 H, Lactic Acid 1.6, Calcium 9.9, Total Bilirubin 1.1, AST 19 , ALT 31, Alkaline Phosphatase 122, Troponin I 0.01, C-Reactive Prot, Quant 4.2 H, Jgd-U-Edccofoojty Pept 6010 H, Total Protein 7.2, Albumin 3.9, Globulin 3.3, Albumin/Globulin Ratio 1.2, PT 16.0 H, INR 1.53 H, APTT 48 H, CBC w Diff NO MAN DIFF REQ, RBC 4.18 L, MCV 86.5, MCH 28.9, MCHC 33.4, RDW 13.1, MPV 8.5, Gran % 81.2 H, Lymphocytes % 11.2 L, Monocytes % 7.4, Eosinophils % 0.2, Basophils % 0, Absolute Granulocytes 8.3 H, Absolute Lymphocytes 1.1 L, Absolute Monocytes 0.7 H, Absolute Eosinophils 0, Absolute Basophils 0, ESR Westergren 108 H Microbiology 01/04 1952 URINE ROUT: Urine Culture - COMP Assessment/Plan Assessment/Plan 1. Persistent atrial fibrillation on Eliquis now with rapid ventricular response most likely secondary to pain 2. Mild aortic sclerosis with mild to moderate mitral regurgitation by echocardiogram 3. Acute diastolic heart failure BNP of 6010 last ejection fraction by echo performed April 2017 was 50% 4. Chronic venous stasis changes with ulceration and cellulitis 5. Acute renal insufficiency Atrial fibrillation: The patient heart rate is currently controlled and she is anticoagulated with Eliquisat an adjusted dose for age and renal function. We will continue the same and follow-up as an outpatient. Cellulitis: Continue treatment as per ID and medical team. Acute on chronic congestive heart failure with preserved LV function: The patient has diuresed approximately 2 L since admission and subjectively is improved. We will continue diuresis. She would likely benefit from outpatient follow-up and he CHF clinic Continue telemetry? No
--- NOTE | 2018-01-06 12:17 | PN- Infect Dx ---
Subjective Subjective: No fever; feeling better. Hancock patent. Review of Systems Comments: 12 points reviewed as noted, otherwise negative. Objective Last 24 Hrs of Vital Signs/I&O Vital Signs Date Time Temp Pulse Resp B/P B/P Pulse O2 O2 Flow FiO2 Mean Ox Delivery Rate 01/06 1052 98.0 78 16 142/72 01/06 1052 98.0 78 16 142/82 01/06 0714 98.7 77 16 108/52 96 Room Air 01/06 0000 Room Air 01/05 2240 99.4 79 16 102/60 95 Room Air 01/05 1736 62 100/62 01/05 1507 97.7 62 20 100/62 96 Intake & Output 01/06 1600 01/06 0800 01/06 0000 Intake Total 600 Output Total 350 650 Balance -350 -50 Intake, Oral 600 Output, Urine 350 650 Patient 249 lb Weight Weight Bed scale Measurement Method Physical Exam Other Physical Findings: General Appearance: Alert, Oriented X3, Cooperative HEENT AT/sclera nonicteric Neck: no JVD Cardiovascular: irregular rate, 1/6 systolic murmur Lungs: Clear to Auscultation, Normal Air Movement Abdomen: Normal Bowel Sounds, Soft, No Tenderness Extremities: BLE edema, skin discoloration, ulcerative foul-smelling wounds Neuro: alert and awake Results Last 24 Hours of Lab Results: Laboratory Tests 01/06 0650 Chemistry Sodium (137 - 145 mmol/L) 140 Potassium (3.5 - 5.1 mmol/L) 5.0 Chloride (98 - 107 mmol/L) 110 H Carbon Dioxide (22 - 30 mmol/L) 19 L Anion Gap (5 - 16) 10 BUN (7 - 17 mg/dL) 57 H Creatinine (0.5 - 1.0 mg/dL) 1.4 H Estimated GFR (>60 ml/min) 36 L BUN/Creatinine Ratio (7 - 25 %) 40.7 H Hematology CBC w Diff NO MAN DIFF REQ WBC (4.8 - 10.8 /CUMM) 8.2 RBC (4.20 - 5.40 /CUMM) 3.61 L Hgb (12.0 - 16.0 G/DL) 10.5 L Hct (37 - 47 %) 31.4 L MCV (81.0 - 99.0 FL) 87.0 MCH (27.0 - 31.0 PG) 29.2 MCHC (33.0 - 37.0 G/DL) 33.5 RDW (11.5 - 14.5 %) 13.2 Plt Count (130 - 400 /CUMM) 276 MPV (7.4 - 10.4 FL) 8.2 Gran % (42.2 - 75.2 %) 69.3 Lymphocytes % (20.5 - 51.1 %) 19.6 L Monocytes % (1.7 - 9.3 %) 9.9 H Eosinophils % (0 - 5 %) 1.1 Basophils % (0.0 - 2.0 %) 0.1 Absolute Granulocytes (1.4 - 6.5 /CUMM) 5.7 Absolute Lymphocytes (1.2 - 3.4 /CUMM) 1.6 Absolute Monocytes (0.10 - 0.60 /CUMM) 0.8 H Absolute Eosinophils (0.0 - 0.7 /CUMM) 0.1 Absolute Basophils (0.0 - 0.2 /CUMM) 0 Last 24 Hours of Landon Results: SPEC #: [id number] GRAYSON: 01/05/18 STATUS: COLB RECD: - SUBM DR: Harpal CANO, [facility] [place] SOURCE: EXTREMITIE ENTR: 01/05/[address]: Malissa CANO,Bryan Maher SPDESC: SCOTT Burr MD,Donovan Alex MD, [facility] ORDERED: XTRM CULT COMMENT: TYPE OF SPECIMEN: DEEP Procedure Result XTRM CULT PENDING RECEIPT SPEC #: [id number] GRAYSON: 01/04/18 STATUS: RES RECD: 01/04/[address]: Nacho Johnson SOURCE: BLOOD ENTR: 01/04/[address]: Malissa CANO,Bryan Maher SPDESC: 1ST/VENOUS ORDERED: BLOOD CULTURE Procedure Result > BLOOD CULTURE REPORT Preliminary 01/06/18 GRAM STAIN SUGGESTIVE OF: GRAM POSITIVE COCCI IN CLUSTERS Called to/Readback by GROVER by [email or web address] 01/06/181115 Called to/Readback by DR MORRIS by [email or web address] 01/06/181116 Recent Imaging Studies: Arterial US LE's: IMPRESSION: Limited evaluation, with nonvisualization of the left popliteal artery and bilateral anterior tibial and peroneal arteries. There are abnormal, monophasic waveforms seen of the bilateral femoral, profunda femoral and popliteal arteries. No significant peak systolic velocity reduction is seen in visualized segments. Recommend further evaluation with CTA or MRA. DICTATED BY: Bryan Zhang MD DATE/TIME DICTATED:01/05/181253 AUTOMOTIVE HARDWARE ENGINEER:CALLUM DATE/TIME TRANSCRIBED:01/05/181253 CONFIDENTIAL, DO NOT COPY WITHOUT APPROPRIATE AUTHORIZATION Assessment/Plan ID Impression: 82 years old female with past medical history of hypertension, atrial fibrillation, and borderline diabetes presented admitted 01/04. Bilateral lower extremity venous stasis ulcers and cellulitis BActeremia (GPC in clusters ? SCN vs S. aureus) Eval PAD COCO/kidney function improving Suggestion: 1. Repeat Bc x2. 2. Empiric iv abx Unasyn 1.5 gm q 8 h; pending BC results add vancomycin 1.5 gm x1 today 3. F/u vasc sx recom. 4. Trend CBC, BMP, random vancomycin level in am. 5. D/c Hancock cath when feasible.
--- NOTE | 2018-01-06 12:39 | ECHOCARDIOGRAM REPORT ---
LISA NEIL Age: 82 : 1935 Gender: F Exam Date: 01/05/2018 16:15 Exam Location: [address] Ht (in): 63 Wt (lb): 263 BSA: 2.37 BP: 108 / 66 Ordering Physician: Isma Arias MD Referring Physician: Milo Muñoz MD Technologist: Annelise Armando [facility] Room Number: 174-02 Indications: HEART FAILURE Rhythm: Technical Quality: FINDINGS Left Ventricle Normal LV chamber size and wall thickness. The estimated LVEF is 55%. There are no focal wall motion abnormalities. There is mild septal dyssynchrony. Right Ventricle Mildly dilated right ventricular size, with mild right ventricular hypokinesis. Right Atrium Dilated right atrium Left Atrium Moderately dilated left atrium Mitral Valve Mildly thickened and calcified mitral valve leaflets with adequate leaflet opening. There is mild to moderate mitral regurgitation. Aortic Valve Mildly calcified aortic valve leaflets with adequate leaflet opening. There is aortic valve stenosis with a mean gradient of 23 Tricuspid Valve normal appearing tricuspid valvular leaflets, structure and function. There is mild to moderate tricuspid regurgitation. The estimated PA systolic pressure is 31 mmHg Pulmonic Valve Normal appearing pulmonic valve Pericardium Normal-appearing pericardium Great Vessels Grossly normal great vessels. CONCLUSIONS Normal LV chamber size and wall thickness. The estimated LVEF is 55%. There are no focal wall motion abnormalities. There is mild septal dyssynchrony. Mildly dilated right ventricular size, with mild right ventricular hypokinesis. Moderately dilated left atrium. Mildly thickened and calcified mitral valve leaflets with adequate leaflet opening. There is mild to moderate mitral regurgitation. Mildly calcified aortic valve leaflets with adequate leaflet opening. There is aortic valve stenosis with a mean gradient of 23. Normal appearing tricuspid valvular leaflets, structure and function. There is mild to moderate tricuspid regurgitation. The estimated PA systolic pressure is 31 mmHg. Bay Miranda M.D. (Electronically Signed) Final Date: 06 January 2018 12:38 MEASUREMENTS (Male / Female) Normal Values 2D ECHO LV Diastolic Diameter PLAX 4.2 cm 4.2 - 5.9 / 3.9 - 5.3 cm LV Systolic Diameter PLAX 2.9 cm 2.1 - 4.0 cm LV Fractional Shortening PLAX 31.0 % 25 - 46 % LV Ejection Fraction 2D Teich 59.0 % IVS Diastolic Thickness 0.9 cm LVPW Diastolic Thickness 1.2 cm LV Relative Wall Thickness 0.5 RV Internal Dim ED PLAX 2.6 cm 1.9 - 3.8 cm LVOT Diameter 1.8 cm Aortic Root Diameter 2.4 cm LA Systolic Diameter LX 4.9 cm 3.0 - 4.0 / 2.7 - 3.8 cm LA Volume 124.0 cm 18 - 58 / 22 - 52 cm Ascending Aorta Diameter 2.7 cm DOPPLER AV Peak Velocity 314.0 cm/s AV Peak Gradient 39.4 mmHg AV Mean Velocity 226.0 cm/s AV Mean Gradient 23.0 mmHg AV Velocity Time Integral 58.0 cm LVOT Peak Velocity 199.0 cm/s LVOT Peak Gradient 15.8 mmHg LVOT Mean Velocity 142.0 cm/s LVOT Mean Gradient 9.0 mmHg LVOT Velocity Time Integral 41.0 cm LVOT Stroke Volume 104.3 cm AV Area Cont Eq vti 1.8 cm AV Area Cont Eq pk 1.6 cm MV Peak Velocity 177.0 cm/s MV Peak Gradient 12.5 mmHg MV Mean Velocity 85.6 cm/s MV Mean Gradient 4.0 mmHg Mitral E Point Velocity 151.0 cm/s MV PHT Velocity 179.0 cm/s MV Deceleration Clinch 722.0 cm/s MV Pressure Half Time 74.4 ms MV Area PHT 3.0 cm MV Deceleration Time 182.0 ms TR Peak Velocity 256.0 cm/s TR Peak Gradient 26.2 mmHg Right Atrial Pressure 5.0 mmHg Pulmonary Artery Systolic Pressu 31.2 mmHg Right Ventricular Systolic Press 31.2 mmHg PV Peak Velocity 175.0 cm/s PV Peak Gradient 12.3 mmHg PV Mean Velocity 104.0 cm/s PV Mean Gradient 5.0 mmHg PV Velocity Time Integral 25.6 cm LV E' Lateral Velocity 18.1 cm/s Mitral E to LV E' Lateral Ratio 8.3 LV E' Septal Velocity 10.1 cm/s Mitral E to LV E' Septal Ratio 15.0
[2018-01-06 14:00] VITALS: BP 100/60
[2018-01-06 22:33] VITALS: BP 102/60
[2018-01-07 06:53] VITALS: BP 112/70
--- NOTE | 2018-01-07 07:17 | PN- Housestaff ---
See Addendum Subjective Follow-up For: BLE cellulitis Afib with RVR COCO Hyperkalemia Acute on CHF Tele-Events Since Last Visit: Afib HR 87-126 Subjective: No complaints or acute events overnight Review of Systems Constitutional: Reports: see HPI. Objective Last 24 Hrs of Vital Signs/I&O Vital Signs Date Time Temp Pulse Resp B/P B/P Pulse O2 O2 Flow FiO2 Mean Ox Delivery Rate 01/07 0653 98.4 90 18 112/70 98 Room Air 01/06 2343 Room Air 01/06 2233 98.4 114 16 102/60 100 Room Air 01/06 1400 98.3 94 20 100/60 98 Room Air 01/06 1052 98.0 78 16 142/72 01/06 1052 98.0 78 16 142/82 Intake & Output 01/07 1600 01/07 0800 01/07 0000 Intake Total 150 500 Output Total 500 600 Balance -350 -100 Intake, IV 150 400 Intake, Oral 0 100 Number 1 Bowel Movements Output, Urine 500 600 Physical Exam General Appearance: Alert, Oriented X3, Cooperative, No Acute Distress Cardiovascular: irregular rate, 1/6 systolic murmur Lungs: Clear to Auscultation, Normal Air Movement Abdomen: Normal Bowel Sounds, Soft, No Tenderness Extremities: BLE edema, skin discoloration, foul-smelling ulcerated lesions with yellowish drainage Current Medications: Current Medications Sig/Jessica Start time Last Medication Dose Route Stop Time Status Admin Acetaminophen 650 MG .STK-MED ONE 01/06 2220 DC PO 01/06 222 Acetaminophen 650 MG Q6P PRN 01/04 2230 AC 01/06 PO 2229 Ampicillin Sodium/ 1,500 MG Q8H 01/07 1400 AC Sulbactam Sodium IV Sodium Chloride 100 ML Ampicillin Sodium/ 1,500 MG Q8H 01/06 1800 DC 01/07 Sulbactam Sodium IV 0549 Sodium Chloride 100 ML Ampicillin Sodium/ 1,500 MG Q8H 01/06 0728 DC 01/06 Sulbactam Sodium IV 1053 Sodium Chloride 100 ML Apixaban 2.5 MG BID 01/05 1000 AC 01/07 PO 0842 Cholecalciferol 1,000 IU DAILY 01/05 1000 AC 01/07 PO 0755 Hydrocodone Bitart/ 1 TAB Q8P PRN 01/04 2230 AC Acetaminophen PO Lisinopril 20 MG DAILY 01/05 1000 AC 01/07 PO 0755 Metoprolol Succinate 100 MG DAILY 01/06 1000 AC 01/07 PO 0755 Nystatin 1 TACOS BID 01/05 0100 AC 01/07 TOP 0756 Oxycodone/ 1 TAB Q8P PRN 01/04 2230 AC Acetaminophen PO Sodium Hypochlorite 1 TACOS BID 01/06 1013 DC TOP Vancomycin HCl 1,500 MG ONCE ONE 01/06 1330 DC 01/06 Dextrose/Water 250 ML IV 01/06 1429 1730 Zinc Oxide 1 TACOS DAILY NEEDED PRN 01/06 1030 AC 01/07 TOP 0757 Last 24 Hrs of Lab/Landon Results Last 24 Hrs of Labs/Mics: Laboratory Tests 01/07/18 0654: Anion Gap 8, Estimated GFR 48 L, BUN/Creatinine Ratio 37.3 H, CBC w Diff NO MAN DIFF REQ, RBC 3.61 L, MCV 87.0, MCH 29.0, MCHC 33.4, RDW 13.0, MPV 8.1, Gran % 65.9, Lymphocytes % 21.8, Monocytes % 9.6 H, Eosinophils % 2.5, Basophils % 0.2, Absolute Granulocytes 4.9, Absolute Lymphocytes 1.6, Absolute Monocytes 0.7 H, Absolute Eosinophils 0.2, Absolute Basophils 0, Random Vancomycin 12.8 Microbiology 01/07 654 BLOOD: Blood Culture - RECD 01/07 654 BLOOD: Blood Culture - RECD Assessment/Plan Assessment: Ms. Head is a 82 yo female with past medical history of hypertension and Afib on Eliquis, borderline diabetes presents to the ED BIBA for family concerns for AMS Problem list: BLE cellulitis Afib with RVR COCO - Cr stable Hyperkalemia Acute on CHF Plan: * US arterial Doppler equivocal * US venous Doppler negative * Monitor potassium and renal function * Continue hydrocodone, Apixaban * Continue metoprolol 100 daily for rate control. Discussed with Dr. Alicia ( cardio) * Resume HCTZ 25 mg daily * Obtain extremities wound cultures * Positive blood cultures most likely a contaminant * Rpt BC x 2 pending * Vancomycin 1.5g x 1 dose given * Vancomycin level 12.8 * Apply zinc oxide to sacral and coccygeal wounds * Cardiology recommendations appreciated * ID recommendations appreciated * Wound care recommendations appreciated * Vascular recommendations appreciated Problem List: 1. Cellulitis of leg 2. Atrial fibrillation with RVR 3. COCO (acute kidney injury) Pain Ratin Pain Location: NA Pain Goal: Remain pain free Pain Plan: NA Tomorrow's Labs & Rationales: BEP for renal function
[2018-01-07 07:54] LABS: ABSOLUTE BASOPHIL COUNT 0 /CUMM (0.0-0.2); ABSOLUTE EOSINOPHIL COUNT 0.2 /CUMM (0.0-0.7); ABSOLUTE GRANULOCYTE CT 4.9 /CUMM (1.4-6.5); ABSOLUTE LYMPH COUNT 1.6 /CUMM (1.2-3.4); ABSOLUTE MONOCYTE COUNT 0.7 /CUMM (0.10-0.60); BASOPHIL % 0.2 % (0.0-2.0); EOSINOPHIL % 2.5 % (0-5); GRANULOCYTE % 65.9 % (42.2-75.2); HEMATOCRIT 31.4 % (37-47); MEAN CORPUSCULAR HGB CONC 33.4 G/DL (33.0-37.0); MEAN PLATELET VOLUME 8.1 FL (7.4-10.4); PLATELET COUNT 280 /CUMM (130-400); RED BLOOD CELL CT 3.61 /CUMM (4.20-5.40); WHITE BLOOD CELL COUNT 7.4 /CUMM (4.8-10.8)
--- NOTE | 2018-01-07 10:07 | PN- Cardiology ---
Subjective Subjective: Telemetry reviewed. Atrial fibrillation with controlled ventricular response. Objective Vital Signs and I&Os Vital Signs Date Time Temp Pulse Resp B/P B/P Pulse O2 O2 Flow FiO2 Mean Ox Delivery Rate 01/07 0653 98.4 90 18 112/70 98 Room Air 01/06 2343 Room Air 01/06 2233 98.4 114 16 102/60 100 Room Air 01/06 1400 98.3 94 20 100/60 98 Room Air 01/06 1052 98.0 78 16 142/72 01/06 1052 98.0 78 16 142/82 Intake & Output 01/07 1600 01/07 0801/07 0000 01/06 1600 01/06 0800 01/06 0000 Intake Total 150 500 600 600 Output Total 500 600 550 350 650 Balance -350 -100 50 -350 -50 Intake, IV 150 400 Intake, Oral 0 100 600 600 Number 1 Bowel Movements Output, Urine 500 600 550 350 650 Patient 249 lb Weight Weight Bed scale Measurement Method Physical Exam: On physical exam patient appeared comfortable Head normocephalic atraumatic Eyes sclera anicteric conjunctiva showed no pallor extraocular muscles were normal Neck no jugular venous distention no thyroid masses no palpable nodes Chest lungs were clear bilaterally Heart irregular rhythm with a ventricle rate around 80 Abdomen soft no organomegaly nontender no masses Extremities both legs were wrapped with Dejon bandage Neurological no gross motor or sensory deficits Current Medications: Current Medications Sig/Jessica Start time Last Medication Dose Route Stop Time Status Admin Acetaminophen 650 MG .STK-MED ONE 01/06 2220 DC PO 01/06 222 Acetaminophen 650 MG Q6P PRN 01/04 2230 AC 01/06 PO 2229 Ampicillin Sodium/ 1,500 MG Q8H 01/07 1400 AC Sulbactam Sodium IV Sodium Chloride 100 ML Ampicillin Sodium/ 1,500 MG Q8H 01/06 1800 DC 01/07 Sulbactam Sodium IV 0549 Sodium Chloride 100 ML Ampicillin Sodium/ 1,500 MG Q8H 01/06 0728 DC 01/06 Sulbactam Sodium IV 1053 Sodium Chloride 100 ML Apixaban 2.5 MG BID 01/05 1000 AC 01/07 PO 0842 Cholecalciferol 1,000 IU DAILY 01/05 1000 AC 01/07 PO 0755 Hydrocodone Bitart/ 1 TAB Q8P PRN 01/04 223 AC Acetaminophen PO Lisinopril 20 MG DAILY 01/05 1000 AC 01/07 PO 0755 Metoprolol Succinate 100 MG DAILY 01/06 1000 AC 01/07 PO 0755 Nystatin 1 TACOS BID 01/05 0100 AC 01/07 TOP 0756 Oxycodone/ 1 TAB Q8P PRN 01/04 2230 AC Acetaminophen PO Sodium Hypochlorite 1 TACOS BID 01/06 1013 DC TOP Vancomycin HCl 1,500 MG ONCE ONE 01/06 1330 DC 01/06 Dextrose/Water 250 ML IV 01/06 1429 1730 Zinc Oxide 1 TACOS DAILY NEEDED PRN 01/06 1030 AC 01/07 TOP 0757 Results Last 48 Hrs of Labs/Mics: Laboratory Tests 01/07/18 0654: Anion Gap 8, Estimated GFR 48 L, BUN/Creatinine Ratio 37.3 H, CBC w Diff NO MAN DIFF REQ, RBC 3.61 L, MCV 87.0, MCH 29.0, MCHC 33.4, RDW 13.0, MPV 8.1, Gran % 65.9, Lymphocytes % 21.8, Monocytes % 9.6 H, Eosinophils % 2.5, Basophils % 0.2, Absolute Granulocytes 4.9, Absolute Lymphocytes 1.6, Absolute Monocytes 0.7 H, Absolute Eosinophils 0.2, Absolute Basophils 0, Random Vancomycin 12.8 01/06/18 0650: Anion Gap 10, Estimated GFR 36 L, BUN/Creatinine Ratio 40.7 H, CBC w Diff NO MAN DIFF REQ, RBC 3.61 L, MCV 87.0, MCH 29.2, MCHC 33.5, RDW 13.2, MPV 8.2, Gran % 69.3, Lymphocytes % 19.6 L, Monocytes % 9.9 H, Eosinophils % 1.1, Basophils % 0.1, Absolute Granulocytes 5.7, Absolute Lymphocytes 1.6, Absolute Monocytes 0.8 H, Absolute Eosinophils 0.1, Absolute Basophils 0 Microbiology 01/05 2000 UPPER RESP: Surveillance Culture - COMP Assessment/Plan Assessment/Plan In summary this 82-year-old female has the following problems .1. Persistent atrial fibrillation on Eliquis now with rapid ventricular response most likely secondary to pain 2. Mild aortic sclerosis with mild to moderate mitral regurgitation by echocardiogram 3. Acute diastolic heart failure BNP of 6010 last ejection fraction by echo performed April 2017 was 50% 4. Chronic venous stasis changes with ulceration and cellulitis 5. Acute renal insufficiency Her ventricular rate appears to be controlled on current medications. Vital signs are stable with a saturation of 98% on room air. I will restart oral diuretics. Continue telemetry? Yes
--- NOTE | 2018-01-07 12:08 | PN- Infect Dx ---
Subjective Subjective: No fever; abd pain or cough. Review of Systems Comments: 12 points reviewed as noted, otherwise neg. Objective Last 24 Hrs of Vital Signs/I&O Vital Signs Date Time Temp Pulse Resp B/P B/P Pulse O2 O2 Flow FiO2 Mean Ox Delivery Rate 01/07 0653 98.4 90 18 112/70 98 Room Air 01/06 2343 Room Air 01/06 2233 98.4 114 16 102/60 100 Room Air 01/06 1400 98.3 94 20 100/60 98 Room Air Intake & Output 01/07 1600 01/07 0800 01/07 0000 Intake Total 150 500 Output Total 500 600 Balance -350 -100 Intake, IV 150 400 Intake, Oral 0 100 Number 1 Bowel Movements Output, Urine 500 600 Patient 264 lb Weight Physical Exam Other Physical Findings: General Appearance: Alert, Oriented X3, Cooperative HEENT AT/sclera nonicteric Neck: no JVD Cardiovascular: irregular rate, 1/6 systolic murmur Lungs: Clear to Auscultation, Normal Air Movement Abdomen: Normal Bowel Sounds, Soft, No Tenderness Extremities: BLE edema, skin discoloration, ulcerative foul-smelling wounds Neuro: alert and awake Results Last 24 Hours of Lab Results: Laboratory Tests 01/07 0654 Chemistry Sodium (137 - 145 mmol/L) 138 Potassium (3.5 - 5.1 mmol/L) 4.7 Chloride (98 - 107 mmol/L) 109 H Carbon Dioxide (22 - 30 mmol/L) 21 L Anion Gap (5 - 16) 8 BUN (7 - 17 mg/dL) 41 H Creatinine (0.5 - 1.0 mg/dL) 1.1 H Estimated GFR (>60 ml/min) 48 L BUN/Creatinine Ratio (7 - 25 %) 37.3 H Hematology CBC w Diff NO MAN DIFF REQ WBC (4.8 - 10.8 /CUMM) 7.4 RBC (4.20 - 5.40 /CUMM) 3.61 L Hgb (12.0 - 16.0 G/DL) 10.5 L Hct (37 - 47 %) 31.4 L MCV (81.0 - 99.0 FL) 87.0 MCH (27.0 - 31.0 PG) 29.0 MCHC (33.0 - 37.0 G/DL) 33.4 RDW (11.5 - 14.5 %) 13.0 Plt Count (130 - 400 /CUMM) 280 MPV (7.4 - 10.4 FL) 8.1 Gran % (42.2 - 75.2 %) 65.9 Lymphocytes % (20.5 - 51.1 %) 21.8 Monocytes % (1.7 - 9.3 %) 9.6 H Eosinophils % (0 - 5 %) 2.5 Basophils % (0.0 - 2.0 %) 0.2 Absolute Granulocytes (1.4 - 6.5 /CUMM) 4.9 Absolute Lymphocytes (1.2 - 3.4 /CUMM) 1.6 Absolute Monocytes (0.10 - 0.60 /CUMM) 0.7 H Absolute Eosinophils (0.0 - 0.7 /CUMM) 0.2 Absolute Basophils (0.0 - 0.2 /CUMM) 0 Toxicology Random Vancomycin (ug/ml) 12.8 Last 24 Hours of Landon Results: EC #: [id number] GRAYSON: 01/04/18 STATUS: COMP RECD: 01/04/[address]: Nacho Johnson SOURCE: BLOOD ENTR: 01/04/[address]: Malissa CANO,Bryan Maher SPDESC: 1ST/VENOUS ORDERED: BLOOD CULTURE Procedure Result > BLOOD CULTURE REPORT Final 01/07/18 GRAM STAIN SUGGESTIVE OF: GRAM POSITIVE COCCI IN CLUSTERS Called to/Readback by GROVER by [email or web address] 01/06/18 1116 Called to/Readback by DR MORRIS by [email or web address] 01/06/18 1117 CULTURE: STAPH COAGULASE NEGATIVE ISOLATED FROM SINGLE BOTTLE Isai CANO, [facility] ORDERED: BLOOD CULTURE Procedure Result BLOOD CULTURE PENDING Recent Imaging Studies: reviewed Assessment/Plan ID Impression: 82 years old female with past medical history of hypertension, atrial fibrillation, and borderline diabetes presented admitted 01/04. Bilateral lower extremity venous stasis ulcers and cellulitis Bacteremia (SCN); contaminant; repeat BC x2 pnd. Eval PAD COCO/kidney function improving Suggestion: 1. Empiric iv abx Unasyn 1.5 gm q 8 h D #3/7; no further vancomycin doses. 2. Wound care per. 3. F/u vasc sx recom. 4. D/C Hancock cath.
[2018-01-07 14:00] VITALS: BP 100/62
[2018-01-07] MEDS ORDERED: AUGMENTIN 875-1 EACH PO (15:07)
[2018-01-07] MEDS ORDERED: NYSTATIN15 G1 TOP (15:07)
[2018-01-07] MEDS ORDERED: TOPROL XL100 M1 PO (15:07)
--- NOTE | 2018-01-07 15:10 | Patient Discharge Instructions ---
Discharge Instructions General Discharge Information You were seen/treated for: Lower extremity cellulitis Afib with rapid ventricular rate Acute kidney injury Hyperkalemia Acute on CHF You had these procedures: none Special Instructions: Follow up with your PCP within 1 week after discharge Follow up with vascular surgeon within 1 week after discharge Wound care - apply vaseline moist gauze to open area and adaptic. Dress with kerlix and gisel wrap from base of toes to tuberosity twice daily and PRN. Leg elevation. For buttocks apply zince oxide daily PRN Diet Recommended Diet: Heart Healthy Activity Other activity limits: PT services as tolerated Acute Coronary Syndrome Inclusion Criteria At DC or during hospital stay patient has or had the following: ACS DIAGNOSIS No Discharge Core Measures Meds if any: Prescribed or Continued at Discharge Meds if any: NOT Prescribed or Continued at Discharge Congestive Heart Failure Inclusion Criteria At DC or during hospital stay patient has or had the following: CHF DIAGNOSIS No Discharge Core Measures Meds if any: Prescribed or Continued at Discharge Meds if any: NOT Prescribed or Continued at Discharge Cerebrovascular accident Inclusion Criteria At DC or during hospital stay patient has or had the following: CVA/TIA Diagnosis No Discharge Core Measures Meds if any: Prescribed or Continued at Discharge Meds if any: NOT Prescribed or Continued at Discharge Venous thromboembolism Inclusion Criteria VTE Diagnosis No VTE Type NONE VTE Confirmed by (Test) NONE Discharge Core Measures - Per Current guidelines, there needs to be overlap - treatment for the first 5 days of Warfarin therapy. - If discharged on Warfarin prior to 5 days of - overlap therapy, the patient will need to be - assessed for post discharge needs including - *Post discharge parental anticoagulation - *Warfarin and/or parental anticoagulation education - *Follow up date to check INR post discharge At least 5 days overlap therapy as Inpatient No Meds if any: Prescribed or Continued at Discharge Note: Overlap Therapy is Warfarin and Anticoagulant Meds if any: NOT Prescribed or Continued at Discharge
--- NOTE | 2018-01-07 15:21 | Discharge Summary ---
Visit Information Visit Dates Admission Date: 01/04/18 Discharge Date: 01/07/18 Hospital Course Course Attending Physician: Donovan Burr MD Primary Care Physician: Bryan Leonardo MD Hospital Course: Ms. Head is a 82 yo female with past medical history of hypertension and Afib on Eliquis, borderline diabetes presents to the ED BIBA for family concerns for AMS. She was admitted for atrial fibrillation with rapid ventricular rate Problem list: Altered mental status Bilateral lower extremity cellulitis and venous stasis ulcers Atrial fibrillation with rapid ventricular rate COCO Hyperkalemia Acute on CHF AMS CT head was negative for any acute pathology but showed chronic small vessel ischemic changes. Patient remained alert and oriented during her hospital stay Acute on CHF Lab tests showed proBNP 6010. CXR showed coarsened reticular and interstitial markings with central vascular prominence, enlarged cardiac silhouette but could not rule out interstitial edema. Cardiology was consulted. ECHO demonstrated Moderately dilated left atrium, no wall motion abnormalities, LVEF is 55%. She was diuresed with IV Lasix and we eventually resumed her HCTZ 25 mg. Patient's O2 sats remained > 92% on room air BLE cellulitis and venous stasis ulcers US arterial Doppler equivocal and US venous Doppler negative. Imaging was consistent with cellulitis without osteomyelitis. Infectious diseases, Vascular and wound care were consulted. Blood current cultures were taken. Blood cultures grew gram-positive cocci in clusters suspected to be a contaminant. She she was placed on broad-spectrum antibiotics. She was given 1 dose of vancomycin. Her extremities were dressed twice daily. Afib with RVR ECG showed Afib with a rate of 128. We continued her apixaban and metoprolol. Cardiology was consulted. ECHO demonstrated moderately dilated left atrium, with no wall motion abnormalities, LVEF is 55%. Her metoprolol XL was changed to 100 mg daily for rate control as per cardiology recommendations. COCO Her creatinine was 2.2 on admission but her baseline was unknown. We monitored her renal function which eventually trended down Hyperkalemia We monitored her potassium daily which eventually normalized Sacral and coccygeal pressure ulcers Wound care was consulted. We applied zinc oxide to sacral and coccygeal wounds as needed Allergies: Coded Allergies: No Known Allergies (01/04/18) Pertinent Lab Results: 01/04/18-171 XRY-CHEST XRAY, SINGLE VIEW IMPRESSION: Coarsened reticular and interstitial markings with central vascular prominence and enlarged cardiac silhouette. In the acute setting without priors to compare it would be difficult to exclude a component of interstitial edema. 01/04/18 XRY-FOOT COMPLETE, R; XRY-KNEES BILAT; [id number], LEFT IMPRESSION: Very limited study with no obvious evidence of osteomyelitis of the lower legs. If clinical concern of osteomyelitis persists, a bone scan can be recommended to further evaluate. 01/04/18 CT HEAD WO IV CONTRAST IMPRESSION: There are scattered chronic small vessel ischemic changes within the periventricular white matter. No evidence acute territorial infarct or hemorrhage 01/04/18 CT LOWER EXT WO IV CONTRAST IMPRESSION: Evidence of cellulitis with no discrete abscess. No acute osseous abnormalities. No evidence of osteomyelitis. 01/05/18 US-BILAT LOW EXTR ARTERIAL DOP IMPRESSION: Limited evaluation, with nonvisualization of the left popliteal artery and bilateral anterior tibial and peroneal arteries. There are abnormal, monophasic waveforms seen of the bilateral femoral, profunda femoral and popliteal arteries. No significant peak systolic velocity reduction is seen in visualized segments. Recommend further evaluation with CTA or MRA. 01/05/18 ECHOCARDIOGRAM CONCLUSIONS Normal LV chamber size and wall thickness. The estimated LVEF is 55%. There are no focal wall motion abnormalities. There is mild septal dyssynchrony. Mildly dilated right ventricular size, with mild right ventricular hypokinesis. Moderately dilated left atrium. Mildly thickened and calcified mitral valve leaflets with adequate leaflet opening. There is mild to moderate mitral regurgitation. Mildly calcified aortic valve leaflets with adequate leaflet opening. There is aortic valve stenosis with a mean gradient of 23. Normal appearing tricuspid valvular leaflets, structure and function. There is mild to moderate tricuspid regurgitation. The estimated PA systolic pressure is 31 mmHg. 01/05/18 US-EXT BILAT VENOUS DOPPLER IMPRESSION: Normal triplex scan without evidence of deep venous thrombosis involving the bilateral lower extremities. Disposition Summary Disposition Principal Diagnosis: Afib with rapid ventricular rate Additional Diagnosis: AMS Lower extremity cellulitis and venous stasis ulcers Acute kidney injury Hyperkalemia Acute on CHF Discharge Disposition: SNF Discharge Instructions General Discharge Information Code Status: Full Code Patient's Diet: Heart Healthy Patient's Activity: As tolerated Follow-Up Instructions/Appts: Follow up with your PCP within 1 week after discharge Follow up with vascular surgeon within 1 week after discharge Wound care - apply moist gauze to open area and dress with kerlix and gisel wrap from base of toes to tuberosity twice daily and PRN. Leg elevation. For buttocks apply zince oxide daily PRN Medications at Discharge Discharge Medications: Stop taking the following medications: Metoprolol Succ XL (Toprol Xl) 50 MG TAB ORAL TWICE DAILY Continue taking these medications: Apixaban (Eliquis) 5 MG TABLET 5 Milligram ORAL TWICE DAILY Qty = 60 Lisinopril/Hydrochlorothiazide (Zestoretic 20-25 MG Tablet) 20 MG-25 MG TABLET 20-25 Milligram ORAL DAILY Cholecalciferol (Vitamin D3) (Vitamin D) 1,000 UNIT TABLET 1,000 Unit ORAL DAILY Start taking the following new medications: Metoprolol Succ XL (Toprol XL) 100 MG TAB.ER.24H 100 Milligram ORAL DAILY Qty = 30 No Refills Nystatin (Nystatin) 100,000 UNIT/GRAM CREAM..G. 1 Application On the skin TWICE DAILY Qty = 7 No Refills Amoxicillin/Potassium Clav (Augmentin 875-125 Tablet) 875 MG-125 MG TABLET 1 Tablet ORAL TWICE DAILY Qty = 8 No Refills Copies To: Denzel CANO,Joey; Malissa CANO,Bryan Maher Attending MD Review Statement Documenting Attending: Donovan Burr MD Other Findings: The patient was seen on the day of discharge. The positive blood culture from admission is growing coag negative staph c/w contamination rather than infection. Cellulitis is responding to current antibiotics. OK to switch to oral antibiotics as per ID. Elected STR for wound care and close follow-up of LE edema. Will go to [facility] today.
[2018-01-07 17:31] VITALS: BP 100/62
== END 2018-01-07 19:35 | DRG 292 ==
LOC: ERH 16:34 → 1NO 21:15 → ERHI 21:15 → ENRESERV 23:00 → 1NO 23:42
PROVIDERS: Internal Medicine Adolescent Medicine; Internal Medicine Hematology & Oncology; Physician Assistant; Student in an Organized Health Care Education/Training Program
DX: I11.0 Hypertensive heart disease with heart failure (principal); L03.116 Cellulitis of left lower limb; L89.159 Pressure ulcer of sacral region, unspecified stage; L89.109 Pressure ulcer of unspecified part of back, unspecified stage; N17.9 Acute kidney failure, unspecified; L97.929 Non-pressure chronic ulcer of unspecified part of left lower leg with unspecified severity; L03.115 Cellulitis of right lower limb; I48.1 Persistent atrial fibrillation; Z68.42 Body mass index [BMI] 45.0-49.9, adult; L97.919 Non-pressure chronic ulcer of unspecified part of right lower leg with unspecified severity; E87.5 Hyperkalemia; E66.01 Morbid (severe) obesity due to excess calories; I50.31 Acute diastolic (congestive) heart failure; L30.4 Erythema intertrigo; F17.210 Nicotine dependence, cigarettes, uncomplicated; I87.2 Venous insufficiency (chronic) (peripheral); Z79.01 Long term (current) use of anticoagulants; Z91.14 Patient's other noncompliance with medication regimen
CPT/HCPCS: 1NSP; 36415; 36592; 71045; 73564-50; 73590-LT; 73630-RT; 81001; 82436; 87040; 87070; 87086; 87147; 93005; 93010; 93306; 93925; 93970; 96374; 96375; 97110-GO; 97116-GO; 97161-GP; 97530-GO; 99291; J0713; J1940; J3370; J7060; J7508